=== PATIENT | female | born 1950 ===

== ENCOUNTER → 2016-07-14 | Outpatient (CLI) | payer MEDICARE, OTHER ==
--- NOTE | 2016-07-14 09:38 | MM ---
Reason for exam: history of breast cancer, conservation therapy. Last mammogram was performed 1 year ago. History: Patient is postmenopausal, has history of breast cancer at age 56, and previous chest radiation therapy. Malignant US right core biopsy of the right breast, July 05, 2007. Lumpectomy, 2007. Radiation therapy. Took hormonal contraceptives for 7 years. Took estrogen for 6 years beginning at age 50. Took antineoplastic for 5 years beginning at age 56. Physical Findings: Nurse did not find any significant physical abnormalities on exam. MG 3D Diag Mammo W/Cad CINDY Bilateral CC and MLO view(s) were taken. Prior study comparison: July 14, 2015, bilateral MG 3d diag mammo w/cad CINDY. July 10, 2014, bilateral MG diagnostic mammo w CAD CINDY. July 08, 2013, CAD bilateral diagnostic mammogram. July 06, 2012, CAD bilateral diagnostic mammogram. The breast tissue is heterogeneously dense. This may lower the sensitivity of mammography. Post surgical and post therapy change in the right breast. No significant new findings when compared with previous films. These results were verbally communicated with the patient and result sheet given to the patient on 07/14/16. ASSESSMENT: Benign, BI-RAD 2 RECOMMENDATION: Follow-up diagnostic mammogram of both breasts in 1 year.
== END | disposition home or self-care (01) ==
LOC: RADMAMWWP 08:52
PROVIDERS: ATTEND Surgery
DX: R92.8 Other abnormal and inconclusive findings on diagnostic imaging of breast (principal)
CPT/HCPCS: G0204; G0279

== ENCOUNTER → 2017-01-10 | Outpatient (CLI) | payer MEDICARE, OTHER ==
--- NOTE | 2017-01-10 13:26 | US ---
EXAMINATION TYPE: US thyroid st tissue head/neck DATE OF EXAM: 01/10/2017 COMPARISON: NONE CLINICAL HISTORY: R59.0 Cervical lymphadenopathy. Left submandibular palp, not tender, has not change d in size, h/o breast ca 2008 Normal appearing soft tissue scan with normal appearing lymph node at site of palpable. Largest dimen lauryn of node was 1.2cm and showed internal vascularity. IMPRESSION: Area of palpable abnormality there are subcentimeter oval well-defined lesion felt to re flect prominent lymph node. Normal fatty hilum is not clearly seen. Suspect reactive lymph node from recent infection or inflammatory change. If lesion persists I would consider follow-up contrast-enhan estefany neck CT to further evaluate this and the adjacent tissue due to poor visualization of normal fatt y hilum on images saved.
== END | disposition home or self-care (01) ==
LOC: RADUSWWP 11:55
PROVIDERS: ATTEND Family Medicine
DX: R59.0 Localized enlarged lymph nodes (principal)
CPT/HCPCS: 76536

== ENCOUNTER → 2017-08-07 | Outpatient (CLI) | payer MEDICARE, OTHER ==
--- NOTE | 2017-08-07 08:34 | MM ---
Reason for exam: additional evaluation requested from prior study. Last mammogram was performed 1 year and 1 month ago. History: Patient is postmenopausal, has history of breast cancer at age 56, and previous chest radiation therapy. Malignant US right core biopsy of the right breast, July 05, 2007. Lumpectomy, 2007. Radiation therapy. Took hormonal contraceptives for 7 years. Took estrogen for 6 years beginning at age 50. Took antineoplastic for 5 years beginning at age 56. Physical Findings: Nurse did not find any significant physical abnormalities on exam. MG 3D Diag Mammo W/Cad CINDY Bilateral CC and MLO view(s) were taken. XCCL view(s) were taken of the right breast. Prior study comparison: July 14, 2016, bilateral MG 3d diag mammo w/cad CINDY. July 14, 2015, bilateral MG 3d diag mammo w/cad CINDY. The breast tissue is heterogeneously dense. This may lower the sensitivity of mammography. Post surgical change in the right upper outer quadrant posteriorly. No significant new findings when compared with previous films. These results were verbally communicated with the patient and result sheet given to the patient on 08/07/17. ASSESSMENT: Benign, BI-RAD 2 RECOMMENDATION: Routine screening mammogram of both breasts in 1 year.
== END ==
LOC: RADMAMWWP 07:30
PROVIDERS: ATTEND Family Medicine
DX: R92.8 Other abnormal and inconclusive findings on diagnostic imaging of breast (principal)
CPT/HCPCS: 77066; G0279; 77062

== ENCOUNTER → 2018-03-08 | Outpatient (CLI) | payer MEDICARE ==
--- NOTE | 2018-03-08 12:10 | BD ---
EXAMINATION TYPE: Axial Bone Density DATE OF EXAM: 03/08/2018 CLINICAL HISTORY: Height: 62 Weight: 100 FRAX RISK QUESTIONS: Alcohol (3 or more units per day): no Family History (Parent hip fracture): no Glucocorticoids (More than 3mos): no (Ex: prednisone, prednisolone, methylprednisolone, dexamethasone, and hydrocortisone). History of Fracture in Adulthood: no Secondary Osteoporosis: 1. Type 1 Diabetes: no 2. Hyperthyroidism: no 3. Menopause before 45: no 4. Malnutrition: no 5. Chronic liver disease: no Rheumatoid Arthritis: no Current Tobacco Use: no RISK FACTORS HISTORY OF: Family History of Osteoporosis: not that patient is aware of Active: yes Diet low in dairy products/other sources of calcium: no Postmenopausal woman: yes Take estrogen and/or progesterone medications: not now How long: hormonal contraceptives about 7 years, estrogen about 6 years Lost more than 2 inches in height since high school: no Frequent falls: no Poor Health: no Hyperparathyroidism: no Adrenal Insufficiency: no MEDICATIONS: Prednisone or other steroids: no Thyroid Medications: no Osteoporosis Medications: no Additional Medications: calcium with Vitamin D Additional History: Breast CA age 56:radiation; past use of Antineoplastic for 5 years...none now) EXAM MEASUREMENTS: Bone mineral densitometry was performed using the [employer] System. Bone mineral density as measured about the Lumbar spine is: ----- L1-L4(G/cm2): 1.110 T Score Values are as follows: ----- L2: -0.6 ----- L3: -0.1 ----- L4: -1.2 ----- L1-L4: -0.6 Bone mineral density has: Decreased -0.3% since study of: 12/27/2011 Bone mineral density about the R hip (g/cm2): 0.820 Bone mineral density about the L hip (g/cm2): 0.751 T Score values are as follows: -----R Neck: -1.6 -----L Neck: -2.1 -----R Total: -1.4 -----L Total: -1.8 Bone mineral density has: Decreased -8.1% since study of: IMPRESSION: Osteopenia bilateral femora. NOTE: T-SCORE=SD OF THE YOUNG ADULT MEAN.
== END | disposition home or self-care (01) ==
LOC: RADBDWWP 07:07
PROVIDERS: ATTEND Family Medicine
DX: Z78.0 Asymptomatic menopausal state (principal); M85.852 Other specified disorders of bone density and structure, left thigh; M85.851 Other specified disorders of bone density and structure, right thigh
CPT/HCPCS: 77080

== ENCOUNTER → 2018-08-08 | Outpatient (CLI) | payer MEDICARE ==
--- NOTE | 2018-08-08 08:55 | MM ---
Reason for exam: additional evaluation requested from prior study. Last mammogram was performed 1 year ago. History: Patient is postmenopausal, has history of breast cancer at age 56, and previous chest radiation therapy. Malignant US right core biopsy of the right breast, July 05, 2007. Lumpectomy, 2007. Radiation therapy. Took hormonal contraceptives for 7 years. Took estrogen for 6 years beginning at age 50. Took antineoplastic for 5 years beginning at age 56. Physical Findings: Nurse did not find any significant physical abnormalities on exam. MG 3D Diag Mammo W/Cad CINDY Bilateral CC and MLO view(s) were taken. Prior study comparison: August 07, 2017, bilateral MG 3d diag mammo w/cad CINDY. July 14, 2016, bilateral MG 3d diag mammo w/cad CINDY. The breast tissue is heterogeneously dense. This may lower the sensitivity of mammography. No significant new findings when compared with previous films. These results were verbally communicated with the patient and result sheet given to the patient on 08/08/18. ASSESSMENT: Benign, BI-RAD 2 RECOMMENDATION: Routine screening mammogram of both breasts in 1 year.
== END ==
LOC: RADMAMWWP 08:08
PROVIDERS: ATTEND Family Medicine
DX: C50.919 Malignant neoplasm of unspecified site of unspecified female breast (principal)
CPT/HCPCS: 77066; G0279; 77062

== ENCOUNTER → 2019-09-05 | Outpatient (CLI) | payer MEDICARE ==
--- NOTE | 2019-09-09 10:12 | MM ---
Reason for exam: screening (asymptomatic). Last mammogram was performed 1 year and 1 month ago. History: Patient is postmenopausal, has history of breast cancer at age 56, and previous chest radiation therapy. Malignant US right core biopsy of the right breast, July 05, 2007. Lumpectomy, 2007. Radiation therapy. Took hormonal contraceptives for 7 years. Took estrogen for 6 years beginning at age 50. Took antineoplastic for 5 years beginning at age 56. Physical Findings: A clinical breast exam by your physician is recommended on an annual basis and results should be correlated with mammographic findings. MG 3D Screening Mammo W/Cad Bilateral CC and MLO view(s) were taken. Prior study comparison: August 08, 2018, bilateral MG 3d diag mammo w/cad CINDY. August 07, 2017, bilateral MG 3d diag mammo w/cad CINDY. The breast tissue is heterogeneously dense. This may lower the sensitivity of mammography. Finding #1: Architectural distortion in the axillary tail position of the right breast consistent with known treatment changes. Finding #2: There are typically benign round calcifications in both breasts. There is no discrete abnormality. ASSESSMENT: Benign, BI-RAD 2 RECOMMENDATION: Follow-up diagnostic mammogram of both breasts in 1 year.
== END | disposition home or self-care (01) ==
LOC: RADMAMWWP 07:46
PROVIDERS: ATTEND Family Medicine
DX: Z12.31 Encounter for screening mammogram for malignant neoplasm of breast (principal)
CPT/HCPCS: 77063; 77067

== ENCOUNTER → 2020-04-02 | Outpatient (CLI) | payer MEDICARE ==
--- NOTE | 2020-04-02 09:57 | BD ---
EXAMINATION TYPE: Axial Bone Density DATE OF EXAM: 04/02/2020 COMPARISON: 03.08.2018 CLINICAL HISTORY: 69 YR OLD FEMALE.....ICD-10 CODE: Z78.0 MENOPAUSAL Height: 61.2 Weight: 100 FRAX RISK QUESTIONS: NOTHING TO NOTE HERE RISK FACTORS HISTORY OF: Postmenopausal woman: YES AT ABOUT 51 YRS OLD Take estrogen and/or progesterone medications: YES, IN THE PAST FOR ABOUT 4-5 YRS Hyperparathyroidism: NO Adrenal Insufficiency: NO MEDICATIONS: Additional Medications: HX OF RADIATION, XANAX, REFLUX MEDS, VIT C Additional History: HX OF RT BREAST CA, REFLUX, ANXIETY AT NIGHT EXAM MEASUREMENTS: Bone mineral densitometry was performed using the [employer] System. Bone mineral density as measured about the Lumbar spine is: ----- L1-L4(G/cm2): 1.054 T Score Values are as follows: ----- L1: -0.4 ----- L2: -0.9 ----- L3: -0.6 ----- L4: -2.2 ----- L1-L4: -1.1 Bone mineral density has: Decreased -7.8% since study of: 03.08.2018 Bone mineral density about the R hip (g/cm2): 0.793 Bone mineral density about the L hip (g/cm2): 0.761 T Score values are as follows: -----R Neck: -1.7 -----L Neck: -2.0 -----R Total: -1.7 -----L Total: -2.0 Bone mineral density has: Decreased -3.0% since study of: 03.08.2018 FRAX%s: THERE IS A 10.0% CHANCE FOR A MAJOR OSTEOPOROTIC FX AND A 2.2% FOR HIP......PROBABILITY F OR FX IN 10 YRS TIME IMPRESSION: Osteopenia (T Score between -2.5 and -1) remains present. Bone density is slightly decreased or dimin ished from 2018. There remains slightly increased risk of fracture and the patient may be considered for treatment. Re-Screen 2-5 years. NOTE: T-SCORE=SD OF THE YOUNG ADULT MEAN.
== END | disposition home or self-care (01) ==
LOC: RADBDWWP 08:36
PROVIDERS: ATTEND Family Medicine
DX: M85.88 Other specified disorders of bone density and structure, other site (principal)
CPT/HCPCS: 77080

== ENCOUNTER 2020-05-17 14:48 | Inpatient (IN) | payer MEDICARE ==
[2020-05-17] MEDS ORDERED: SODIUM CHLORIDE 0.9% 500 ML 500 ML IV STA (15:47)
[2020-05-17 16:18] LABS: Basophils % (A) 0 %; Eosinophils # (A) 0.1 k/uL (0-0.7); Eosinophils % (A) 1 %; HCT 31.7 % (34.0-46.0); Lymphocytes % (A) 9 %; MCH 30.8 pg (25.0-35.0); MCHC 34.6 g/dL (31.0-37.0); Mean Platelet Volume 7.1; Monocytes # (A) 0.5 k/uL (0-1.0); Monocytes % (A) 5 %; Neutrophils # (A) 8.6 k/uL (1.3-7.7); Neutrophils % (A) 83 %; Platelet Count 386 k/uL (150-450); RBC 3.57 m/uL (3.80-5.40); RDW 12.5 % (11.5-15.5); WBC 10.4 k/uL (3.8-10.6)
--- NOTE | 2020-05-17 16:25 | XR ---
EXAMINATION TYPE: XR chest 2V DATE OF EXAM: 05/17/2020 COMPARISON: NONE HISTORY: Nausea. Syncope. TECHNIQUE: 3 views FINDINGS: Heart is normal. There are no hilar masses. There are surgical clips over the right breast. There is mild atheromatous change in the thoracic aorta. There is some minimal lingula density at th e left cardiac border. IMPRESSION: Normal heart. Small lingula infiltrate or atelectasis. No heart failure.
[2020-05-17 16:26] LABS: ALT 7 U/L (4-34); AST 30 U/L (14-36); African American GFR (CKD) >90 (>60 ml/min/1.73 sqM); Albumin 3.6 g/dL (3.5-5.0); Alkaline Phosphatase 67 U/L (38-126); Anion Gap 7 mmol/L; Blood Urea Nitrogen 37 mg/dL (7-17); Calcium 8.9 mg/dL (8.4-10.2); Carbon Dioxide 28 mmol/L (22-30); Chloride 103 mmol/L (98-107); Glucose 94 mg/dL (74-99); Magnesium 2.3 mg/dL (1.6-2.3); Non-African American GFR(CKD) >90 (>60 ml/min/1.73 sqM); Potassium 4.8 mmol/L (3.5-5.1); Sodium 138 mmol/L (137-145); Total Bilirubin 0.3 mg/dL (0.2-1.3); Total Protein 6.1 g/dL (6.3-8.2)
[2020-05-17 16:29] LABS: Appearance,Urine Clear (Clear); Bilirubin,Urine Negative (Negative); Blood,Urine Negative (Negative); Color,Urine Light Yellow; Glucose,Urine (UA) Negative (Negative); Ketones,Urine 1+ (Negative); Leukocyte Esterase,Urine Negative (Negative); Nitrite,Urine Negative (Negative); Protein,Urine Trace (Negative); Specific Gravity,Urine 1.026 (1.001-1.035); Urobilinogen,Urine <2.0 mg/dL (<2.0)
[2020-05-17 16:33] LABS: INR 0.9 (<1.2); Prothrombin Time 10.2 sec (9.0-12.0)
[2020-05-17 16:50] LABS: Partial Thromboplastin Time 20.8 sec (22.0-30.0)
[2020-05-17] MEDS ORDERED: PANTOPRAZOLE 40 MG/10 ML VIAL IVP ONE (17:07)
[2020-05-17] MEDS ORDERED: NALOXONE 0.4 MG/ML 1 ML VIAL IV PRN (17:08)
--- NOTE | 2020-05-17 17:08 | ED ---
General Adult HPI - General Chief complaint: Syncope Stated complaint: GI Bleed Time Seen by Provider: 05/17/20 15:36 Source: patient, EMS Mode of arrival: EMS Limitations: no limitations - History of Present Illness Initial comments: She is a 77-year-old female with past medical history of peptic ulcer disease, breast cancer in remission who presents emergency Department with reported syncopal episode. Patient states that she was at home in the bathroom when she had sudden onset of nausea. She sat on the ground as she felt faint and called to her . Reports that she then completely passed out on the floor. Unknown how long the patient was out for. She denies having any headaches or visual changes prior to the incident. No chest pain or shortness of breath. Patient reports that she must of only been out for a few seconds. When she awoke she vomited a small amount of dark blood clots. States that she does have a history of peptic ulcer disease however has not had any issues with it since the . She had a colonoscopy and EGD on the of this month by Dr. Warner and it was reported that the ulcer had healed over. Patient denies hemoptysis. No cough or shortness of breath. Denies any previous cardiac history. No other alleviating precipitating or modifying factors - Related Data Home Medications Medication Instructions Recorded Confirmed ALPRAZolam [Xanax] 0.25 mg PO HS 05/17/20 05/17/20 Carboxymethylcellulose Sodium 1 drop BOTH EYES HS 05/17/20 05/17/20 [Refresh Tears] Patti-C 500mg 500 mg PO PC-SUPPER 05/17/20 05/17/20 Lactobacillus Rhamnosus GG 1 cap PO DAILY 05/17/20 05/17/20 [Culturelle] Pantoprazole Sodium [Protonix] 40 mg PO Q48H 05/17/20 05/17/20 Allergies Allergy/AdvReac Type Severity Reaction Status Date / Time azithromycin AdvReac Nausea & Verified 05/17/20 17:12 Vomiting & Diarrhea ciprofloxacin [From Cipro] AdvReac Nausea & Verified 05/17/20 17:12 Vomiting & Diarrhea Review of Systems ROS Statement: Those systems with pertinent positive or pertinent negative responses have been documented in the HPI. ROS Other: All systems not noted in ROS Statement are negative. Past Medical History Past Medical History: Cancer Additional Past Medical History / Comment(s): breast History of Any Multi-Drug Resistant Organisms: None Reported Past Surgical History: Tubal Ligation Additional Past Surgical History / Comment(s): rt lumpectomy, cataracts Past Psychological History: No Psychological Hx Reported Smoking Status: Never smoker Past Alcohol Use History: None Reported Past Drug Use History: None Reported General Exam Limitations: no limitations General appearance: alert, in no apparent distress Head exam: Present: atraumatic, normocephalic, normal inspection Eye exam: Present: normal appearance, PERRL, EOMI. Absent: scleral icterus, conjunctival injection, periorbital swelling ENT exam: Present: normal exam, mucous membranes moist Neck exam: Present: normal inspection. Absent: tenderness, meningismus, lymphadenopathy Respiratory exam: Present: normal lung sounds bilaterally. Absent: respiratory distress, wheezes, rales, rhonchi, stridor Cardiovascular Exam: Present: regular rate, normal rhythm, normal heart sounds. Absent: systolic murmur, diastolic murmur, rubs, gallop, clicks GI/Abdominal exam: Present: soft, normal bowel sounds. Absent: distended, tenderness, guarding, rebound, rigid Extremities exam: Present: normal inspection, full ROM, normal capillary refill. Absent: tenderness, pedal edema, joint swelling, calf tenderness Back exam: Present: normal inspection Neurological exam: Present: alert, oriented X3, CN II-XII intact Psychiatric exam: Present: normal affect, normal mood Skin exam: Present: warm, dry, intact, normal color. Absent: rash Course Vital Signs 05/17/20 05/17/20 05/17/20 14:53 16:00 17:00 Temperature 98.2 F Pulse Rate 91 81 91 Respiratory 20 20 20 Rate Blood Pressure 126/55 127/62 124/85 O2 Sat by Pulse 99 100 98 Oximetry 05/17/20 17:56 Temperature 98.1 F Pulse Rate 93 Respiratory 20 Rate Blood Pressure 120/63 O2 Sat by Pulse 99 Oximetry EKG Findings - EKG Comments: EKG Findings:: EKG demonstrates normal sinus rhythm with ventricular rate of 86. SC interval 112. QRS 68. QTC of 418. No acute ST segment elevations or depressions. Medical Decision Making - Medical Decision Making Upon arrival patient was placed into room 6. A thorough history and physical exam was performed. IV had been established by EMS. Laboratory studies were conducted and a chest x-ray was performed. 12-lead EKG was performed. Laboratory studies are reviewed. Hemoglobin is 11. Chest x-ray demonstrates a normal heart with a small lingular atelectasis. Results are discussed with the patient. She has not had any episodes of hematemesis while in the emergency department. I discussed the case with Dr. Crowe who agreed to admit the [facility]. She remained in stable condition awaiting a bed. I will consult GI and cardiology - Lab Data Result diagrams: 05/19/20 05:16 05/19/20 05:16 Lab Results 05/17/20 05/17/20 05/17/20 Range/Units 16:07 16:07 16:07 WBC 10.4 (3.8-10.6) k/uL RBC 3.57 L (3.80-5.40) m/uL Hgb 11.0 L (11.4-16.0) gm/dL Hct 31.7 L (34.0-46.0) % MCV 89.0 (80.0-100.0) fL MCH 30.8 (25.0-35.0) pg MCHC 34.6 (31.0-37.0) g/dL RDW 12.5 (11.5-15.5) % Plt Count 386 (150-450) k/uL MPV 7.1 Immature Gran % (Auto) % Absolute Nucleated RBC (0.00-0.00) X 10*3/uL Neutrophils % 83 % Lymphocytes % 9 % Monocytes % 5 % Eosinophils % 1 % Basophils % 0 % Immature Gran # (0.00-0.04) X 10*3/uL Neutrophils # 8.6 H (1.3-7.7) k/uL Lymphocytes # 1.0 (1.0-4.8) k/uL Monocytes # 0.5 (0-1.0) k/uL Eosinophils # 0.1 (0-0.7) k/uL Basophils # 0.0 (0-0.2) k/uL NRBC/100 WBC Diff (0.0-0.0) /100 WBCS PT 10.2 (9.0-12.0) sec INR 0.9 (<1.2) APTT 20.8 L (22.0-30.0) sec Sodium 138 (137-145) mmol/L Potassium 4.8 (3.5-5.1) mmol/L Chloride 103 (98-107) mmol/L Carbon Dioxide 28 (22-30) mmol/L Anion Gap 7 mmol/L BUN 37 H (7-17) mg/dL Creatinine 0.59 (0.52-1.04) mg/dL Est GFR (CKD-EPI)AfAm >90 (>60 ml/min/1.73 sqM) Est GFR (CKD-EPI)NonAf >90 (>60 ml/min/1.73 sqM) BUN/Creatinine Ratio (12.00-20.00) Ratio Glucose 94 (74-99) mg/dL Calcium 8.9 (8.4-10.2) mg/dL Magnesium 2.3 (1.6-2.3) mg/dL Total Bilirubin 0.3 (0.2-1.3) mg/dL AST 30 (14-36) U/L ALT 7 (4-34) U/L Alkaline Phosphatase 67 (38-126) U/L Troponin I (0.000-0.034) ng/mL Total Protein 6.1 L (6.3-8.2) g/dL Albumin 3.6 (3.5-5.0) g/dL Urine Color Urine Appearance (Clear) Urine pH (5.0-8.0) Ur Specific [place] (1.001-1.035) Urine Protein (Negative) Urine Glucose (UA) (Negative) Urine Ketones (Negative) Urine Blood (Negative) Urine Nitrite (Negative) Urine Bilirubin (Negative) Urine Urobilinogen (<2.0) mg/dL Ur Leukocyte Esterase (Negative) Coronavirus (PCR) (Not Detectd) 05/17/20 05/17/20 05/17/20 Range/Units 16:07 16:25 17:27 WBC (3.8-10.6) k/uL RBC (3.80-5.40) m/uL Hgb (11.4-16.0) gm/dL Hct (34.0-46.0) % MCV (80.0-100.0) fL MCH (25.0-35.0) pg MCHC (31.0-37.0) g/dL RDW (11.5-15.5) % Plt Count (150-450) k/uL MPV Immature Gran % (Auto) % Absolute Nucleated RBC (0.00-0.00) X 10*3/uL Neutrophils % % Lymphocytes % % Monocytes % % Eosinophils % % Basophils % % Immature Gran # (0.00-0.04) X 10*3/uL Neutrophils # (1.3-7.7) k/uL Lymphocytes # (1.0-4.8) k/uL Monocytes # (0-1.0) k/uL Eosinophils # (0-0.7) k/uL Basophils # (0-0.2) k/uL NRBC/100 WBC Diff (0.0-0.0) /100 WBCS PT (9.0-12.0) sec INR (<1.2) APTT (22.0-30.0) sec Sodium (137-145) mmol/L Potassium (3.5-5.1) mmol/L Chloride (98-107) mmol/L Carbon Dioxide (22-30) mmol/L Anion Gap mmol/L BUN (7-17) mg/dL Creatinine (0.52-1.04) mg/dL Est GFR (CKD-EPI)AfAm (>60 ml/min/1.73 sqM) Est GFR (CKD-EPI)NonAf (>60 ml/min/1.73 sqM) BUN/Creatinine Ratio (12.00-20.00) Ratio Glucose (74-99) mg/dL Calcium (8.4-10.2) mg/dL Magnesium (1.6-2.3) mg/dL Total Bilirubin (0.2-1.3) mg/dL AST (14-36) U/L ALT (4-34) U/L Alkaline Phosphatase (38-126) U/L Troponin I <0.012 (0.000-0.034) ng/mL Total Protein (6.3-8.2) g/dL Albumin (3.5-5.0) g/dL Urine Color Light Yellow Urine Appearance Clear (Clear) Urine pH 6.0 (5.0-8.0) Ur Specific [place] 1.026 (1.001-1.035) Urine Protein Trace H (Negative) Urine Glucose (UA) Negative (Negative) Urine Ketones 1+ H (Negative) Urine Blood Negative (Negative) Urine Nitrite Negative (Negative) Urine Bilirubin Negative (Negative) Urine Urobilinogen <2.0 (<2.0) mg/dL Ur Leukocyte Esterase Negative (Negative) Coronavirus (PCR) Not Detected (Not Detectd) 05/17/20 05/17/20 05/18/20 Range/Units 18:38 22:13 05:33 WBC 8.42 (3.8-10.6) k/uL RBC 2.86 L (3.80-5.40) m/uL Hgb 8.4 L (11.4-16.0) gm/dL Hct 26.2 L (34.0-46.0) % MCV 91.6 (80.0-100.0) fL MCH 29.4 (25.0-35.0) pg MCHC 32.1 (31.0-37.0) g/dL RDW 12.5 (11.5-15.5) % Plt Count 347 (150-450) k/uL MPV 10.4 Immature Gran % (Auto) 0.4 % Absolute Nucleated RBC 0 (0.00-0.00) X 10*3/uL Neutrophils % 60.0 % Lymphocytes % 27.0 % Monocytes % 10.3 % Eosinophils % 1.8 % Basophils % 0.5 % Immature Gran # 0.03 (0.00-0.04) X 10*3/uL Neutrophils # 5.06 (1.3-7.7) k/uL Lymphocytes # 2.27 (1.0-4.8) k/uL Monocytes # 0.87 (0-1.0) k/uL Eosinophils # 0.15 (0-0.7) k/uL Basophils # 0.04 (0-0.2) k/uL NRBC/100 WBC Diff 0 (0.0-0.0) /100 WBCS PT (9.0-12.0) sec INR (<1.2) APTT (22.0-30.0) sec Sodium (137-145) mmol/L Potassium (3.5-5.1) mmol/L Chloride (98-107) mmol/L Carbon Dioxide (22-30) mmol/L Anion Gap mmol/L BUN (7-17) mg/dL Creatinine (0.52-1.04) mg/dL Est GFR (CKD-EPI)AfAm (>60 ml/min/1.73 sqM) Est GFR (CKD-EPI)NonAf (>60 ml/min/1.73 sqM) BUN/Creatinine Ratio (12.00-20.00) Ratio Glucose (74-99) mg/dL Calcium (8.4-10.2) mg/dL Magnesium (1.6-2.3) mg/dL Total Bilirubin (0.2-1.3) mg/dL AST (14-36) U/L ALT (4-34) U/L Alkaline Phosphatase (38-126) U/L Troponin I <0.012 <0.012 (0.000-0.034) ng/mL Total Protein (6.3-8.2) g/dL Albumin (3.5-5.0) g/dL Urine Color Urine Appearance (Clear) Urine pH (5.0-8.0) Ur Specific [place] (1.001-1.035) Urine Protein (Negative) Urine Glucose (UA) (Negative) Urine Ketones (Negative) Urine Blood (Negative) Urine Nitrite (Negative) Urine Bilirubin (Negative) Urine Urobilinogen (<2.0) mg/dL Ur Leukocyte Esterase (Negative) Coronavirus (PCR) (Not Detectd) 05/18/20 Range/Units 05:33 WBC (3.8-10.6) k/uL RBC (3.80-5.40) m/uL Hgb (11.4-16.0) gm/dL Hct (34.0-46.0) % MCV (80.0-100.0) fL MCH (25.0-35.0) pg MCHC (31.0-37.0) g/dL RDW (11.5-15.5) % Plt Count (150-450) k/uL MPV Immature Gran % (Auto) % Absolute Nucleated RBC (0.00-0.00) X 10*3/uL Neutrophils % % Lymphocytes % % Monocytes % % Eosinophils % % Basophils % % Immature Gran # (0.00-0.04) X 10*3/uL Neutrophils # (1.3-7.7) k/uL Lymphocytes # (1.0-4.8) k/uL Monocytes # (0-1.0) k/uL Eosinophils # (0-0.7) k/uL Basophils # (0-0.2) k/uL NRBC/100 WBC Diff (0.0-0.0) /100 WBCS PT (9.0-12.0) sec INR (<1.2) APTT (22.0-30.0) sec Sodium 142 (137-145) mmol/L Potassium 4.8 (3.5-5.1) mmol/L Chloride 111 H (98-107) mmol/L Carbon Dioxide 27.3 (22-30) mmol/L Anion Gap 3.70 L mmol/L BUN 29.0 H (7-17) mg/dL Creatinine 0.6 (0.52-1.04) mg/dL Est GFR (CKD-EPI)AfAm 107.0 (>60 ml/min/1.73 sqM) Est GFR (CKD-EPI)NonAf 92.4 (>60 ml/min/1.73 sqM) BUN/Creatinine Ratio 48.33 H (12.00-20.00) Ratio Glucose 83 (74-99) mg/dL Calcium 8.6 L (8.4-10.2) mg/dL Magnesium (1.6-2.3) mg/dL Total Bilirubin (0.2-1.3) mg/dL AST (14-36) U/L ALT (4-34) U/L Alkaline Phosphatase (38-126) U/L Troponin I (0.000-0.034) ng/mL Total Protein (6.3-8.2) g/dL Albumin (3.5-5.0) g/dL Urine Color Urine Appearance (Clear) Urine pH (5.0-8.0) Ur Specific [place] (1.001-1.035) Urine Protein (Negative) Urine Glucose (UA) (Negative) Urine Ketones (Negative) Urine Blood (Negative) Urine Nitrite (Negative) Urine Bilirubin (Negative) Urine Urobilinogen (<2.0) mg/dL Ur Leukocyte Esterase (Negative) Coronavirus (PCR) (Not Detectd) Disposition Clinical Impression: Syncope and collapse, Hematemesis Disposition: ADMITTED IP TO THIS [facility] Condition: Stable Is patient prescribed a controlled substance at d/c from ED?: No Decision to Admit Reason: Admit from EC Decision Date: 05/17/20 Decision Time: 17:08
[2020-05-17] MEDS: ARTIFICIAL TEARS-HYPROMELLOSE DROPS 15 ML BTL BOTH EYES SCH (19:36)
[2020-05-17] MEDS: SODIUM CHLORIDE 0.9% 1,000 ML IV SCH (19:37)
[2020-05-17] MEDS: ALPRAZolam 0.25 MG TAB PO SCH (19:37)
--- NOTE | 2020-05-17 22:48 | HP ---
HISTORY AND PHYSICAL CHIEF COMPLAINTS: Syncope and gastrointestinal bleed. HISTORY OF PRESENT ILLNESS: This 69-year-old woman with a past medical history of multiple medical problems including history of breast cancer, history of tubal ligation, lumpectomy, cataracts being followed Dr. Ledezma in the outpatient setting, was complaining of syncopal episode. The patient was in the bathroom, the patient had nausea and the patient also had episodes of hematemesis and the patient came to [facility] and was admitted for further evaluation and treatment. The patient recently had a colonoscopy and EGD by Dr. Sims. Apparently, pyloric stenosis suspected. The patient had history of pyloric ulcers apparently in 1998, which was treated medically. There is no history of fever, rigors. No history of headache, loss of consciousness, seizures. PAST MEDICAL HISTORY: History of breast cancer, history of tubal ligation. MEDICATIONS: Medications prior to admission include home medications are: Protonix, lactobacillus, vitamin C, Refresh tears, and Xanax. Doses are reviewed. ALLERGIES: ZITHROMAX. CIPRO. FAMILY HISTORY: No history of heart disease or strokes in the family. SOCIAL HISTORY: No history of smoking. No history of alcohol. REVIEW OF SYSTEMS: ENT: No diminished vision. No diminished hearing. CARDIOVASCULAR: No angina or palpitations. RESPIRATION: No cough or hemoptysis. GI mentioned earlier. : No dysuria or hematuria. NERVOUS SYSTEM: No numbness, weakness. ALLERGY/IMMUNOLOGY: No asthma or hayfever. MUSCULOSKELETAL: As mentioned earlier. HEMATOLOGY/ONCOLOGY: As mentioned earlier. ENDOCRINE: No history of diabetes or hypothyroidism. CONSTITUTIONAL: As mentioned earlier. DERMATOLOGY: Negative. RHEUMATOLOGY negative. PSYCHIATRY as mentioned earlier. PHYSICAL EXAMINATION: Alert and oriented times three. Pulse 98, blood pressure 111/72. Respirations 18, temperature 98.3, pulse ox 98% on room air. HEENT: Conjunctivae pale. Oral mucosa moist. NECK: No jugular venous distention. No lymph node enlargement. CARDIOVASCULAR systems: S1, S2 muffled. RESPIRATION: Breath sounds diminished in the bases. No rhonchi. No crackles. ABDOMEN: Soft, nontender. No mass palpable. LEGS: No edema. No swelling. NERVOUS SYSTEM as mentioned earlier. Moves all 4 limbs. No focal motor or sensory deficits. LYMPHATICS: No lymph nodes palpable in the neck, axillae or groin. SKIN: No ulcer, rash or bleeding. JOINTS: No active deforming arthropathy. LABS: WBC 10.5, hemoglobin 11 and BUN is 37. ASSESSMENT: 1. Acute upper gastrointestinal bleeding with acute blood loss anemia. 2. Increased BUN. 3. History of peptic ulcer disease previously. 4. History of pyloric stenosis, possibly. 5. History of carcinoma of the breast. 6. History of tubal ligation. 7. Mild protein calorie malnutrition with body mass index of 19.6. 8. FULL CODE. RECOMMENDATIONS AND DISCUSSION: This 69-year-old woman who presented with multiple complex medical issues, we will monitor the patient closely, continue the current medications. We will initiate IV Protonix. Keep the patient n.p.o. except medications, possibly repeat endoscopies. Otherwise monitor hemoglobin closely. Avoid antiplatelet agents and anti inflammatory agents. Prognosis is extremely guarded because of multiple complex medical issues. Further recommendations to follow. A copy of dictation being forwarded to Dr. Ledezma who is the primary physician. MMKAYL / LESLIEN: [id number] /
[2020-05-18] MEDS: PANTOPRAZOLE 40 MG/10 ML VIAL IVP SCH ×2 (08:23→21:28)
[2020-05-18] MEDS: SODIUM CHLORIDE 0.9% 1,000 ML IV SCH (08:24)
[2020-05-18] MEDS ORDERED: PANTOPRAZOLE 40 MG/10 ML VIAL IV SCH (09:00)
[2020-05-18 09:14] LABS: Basophils # (A) 0.04 X 10*3/uL (0.00-0.10); Basophils % (A) 0.5 %; Eosinophils # (A) 0.15 X 10*3/uL (0.04-0.35); Eosinophils % (A) 1.8 %; HCT 26.2 % (37.2-46.3); HGB 8.4 g/dL (12.0-15.0); Lymphocytes # (A) 2.27 X 10*3/uL (0.90-5.00); MCH 29.4 pg (27.0-32.0); MCHC 32.1 g/dL (32.0-37.0); MCV 91.6 fL (80.0-97.0); Mean Platelet Volume 10.4 fL (9.5-12.2); Monocytes # (A) 0.87 X 10*3/uL (0.20-1.00); Monocytes % (A) 10.3 %; Neutrophils # (A) 5.06 X 10*3/uL (1.80-7.70); Platelet Count 347 X 10*3/uL (140-440); RBC 2.86 X 10*6/uL (4.10-5.20); RDW 12.5 % (11.5-14.5); WBC 8.42 X 10*3/uL (4.50-10.00)
[2020-05-18 09:26] LABS: Anion Gap 3.7 mmol/L (4.00-12.00); BUN/Creat Ratio 48.33 Ratio (12.00-20.00); Calcium 8.6 mg/dL (8.7-10.3); Carbon Dioxide 27.3 mmol/L (21.6-31.8); Non-African American GFR(CKD) 92.4 (60.0-200.0); Potassium 4.8 mmol/L (3.5-5.5)
[2020-05-18] MEDS ORDERED: ACETAMINOPHEN TAB 325 MG TAB PO PRN (10:27)
--- NOTE | 2020-05-18 12:37 | ECHOF ---
Referral Reason:LV function, syncope MEASUREMENTS -------- HEIGHT: 157.5 cm WEIGHT: 47.6 kg BP: RVIDd: 2.9 cm (< 3.3) IVSd: 1.1 cm (0.6 - 1.1) LVIDd: 2.9 cm (3.9 - 5.3) LVPWd: 1.2 cm (0.6 - 1.1) IVSs: 1.2 cm LVIDs: 1.6 cm LVPWs: 1.3 cm LAESV Index (A-L): 10.69 ml/m Ao Diam: 3.0 cm (2.0 - 3.7) AV Cusp: 1.5 cm (1.5 - 2.6) MV EXCURSION: 17.658 mm (> 18.000) MV EF SLOPE: 46 mm/s (70 - 150) EPSS: 0.4 cm MV E Christian: 0.86 m/s MV DecT: 190 ms MV A Christian: 1.01 m/s MV E/A Ratio: 0.85 RAP: 5.00 mmHg RVSP: 15.74 mmHg FINDINGS -------- Sinus rhythm. This was a technically adequate study. The left ventricular size is normal. Left ventricular wall thickness is normal. Overall left vent ricular systolic function is normal with, an EF between 55 - 60 %. The right ventricle is normal in size. Normal LA size by volume 22+/-6 ml/m2. The right atrial size is normal. Interatrial and interventricular septum intact. The aortic valve is trileaflet and appears structurally normal. There is no evidence of aortic regu rgitation. There is no evidence of aortic stenosis. There is trace mitral regurgitation. Mild tricuspid regurgitation present. There is no evidence of pulmonary hypertension. The right v entricular systolic pressure, as measured by Doppler, is 15.74mmHg. There is no pulmonic regurgitation present. The aortic root size is normal. Normal inferior vena cava with normal inspiratory collapse consistent with estimated right atrial pre ssure of 5 mmHg. There is no pericardial effusion. CONCLUSIONS -------- 1. The left ventricular size is normal. 2. Left ventricular wall thickness is normal. 3. Overall left ventricular systolic function is normal with, an EF between 55 - 60 %. 4. There is trace mitral regurgitation. 5. Mild tricuspid regurgitation present. TIE PRESSER: Samantha Lawrence RDCS
--- NOTE | 2020-05-18 13:20 | US ---
EXAMINATION TYPE: US carotid duplex BILAT DATE OF EXAM: 05/18/2020 COMPARISON: NONE CLINICAL HISTORY: syncope. Exam done portable. EXAM MEASUREMENTS: RIGHT: Peak Systolic Velocity (PSV) cm/sec ----- Right CCA: 124.0 ----- Right ICA: 135.0 ----- Right ECA: 119.0 ICA/CCA ratio: 1.1 RIGHT: End Diastole cm/sec ----- Right CCA: 33.8 ----- Right ICA: 45.4 ----- Right ECA: 10.2 LEFT: Peak Systolic Velocity (PSV) cm/sec ----- Left CCA: 109.0 ----- Left ICA: 117.0 ----- Left ECA: 125.0 ICA/CCA ratio: 1.1 LEFT: End Diastole cm/sec ----- Left CCA: 33.0 ----- Left ICA: 37.6 ----- Left ECA: 18.3 VERTEBRALS (direction of flow): Right Vertebral: Antegrade Left Vertebral: Antegrade Rhythm: Normal More focal moderate to severe hyperechoic plaque left carotid bulb. Increased peak systolic velocity bilateral common carotid arteries. No significant elevated ratio is 1 accounting for this. IMPRESSION: Moderate to severe plaque left carotid bulb. No convincing evidence for hemodynamic sign ificant stenosis. Suspect underlying uncontrolled hypertension, correlate clinically. Criteria for Assigning % of Stenosis / Diameter reduction (Estimation based on the indirect measurements of the internal carotid artery velocities (ICA PSV). 1. Normal (no stenosis)=ICA PSV < 125 cm/s: ratio < 2.0: ICA EDV<40 cm/s. 2. Less than 50% stenosis=ICA PSV < 125 cm/s: ratio < 2.0: ICA EDV<40 cm/s. 3. 50 to 69% stenosis=ICA PSV of 125 to 230 cm/s: ration 2.0 ? 4.0: ICA EDV 40-100 cm/s. 4. Greater than 70% stenosis to near occlusion= ICA PSV > 230 cm/s: ratio > 4.0: ICA EDV > 100 cm/s. 5. Near occlusion= ICA PSV velocities may be low or undetectable: variable ratio and ICA EDV. 6. Total occlusion=unable to detect flow.
--- NOTE | 2020-05-18 14:10 | P.CRDCN ---
History of Present Illness Consult date: 05/18/20 History of present illness: CHIEF COMPLAINT: Syncope HISTORY OF PRESENT ILLNESS: This is a 69-year-old female with a past medical history significant for breast cancer and previous ulcers. Patient does not follow with a line ordering clinician. We have been asked to see the patient in consultation for syncope. Patient examined this morning the bedside. Patient states that yesterday she began feeling nauseous and felt like she was going to pass out. She states that she lowered herself to the floor and then she did pass out. She states that she was only out for a few seconds. When she woke up she threw up a large amount of old blood clots. She reports having an EGD and colonoscopy approximately 10 days ago which she states was "okay". Patient denies any dizziness or lightheadedness. She denies chest pain or pressure. D enies shortness of breath. DIAGNOSTICS: EKG reveals sinus mechanism with no signs of acute ischemia Chest xray negative for acute process Laboratory data: Hemoglobin on admission 11.0. Repeat 8.4. Platelet count 347. Sodium 142. Potassium 4.8. BUN 29. Creatinine 0.6. Troponin negative 3. Current home cardiac medications include none REVIEW OF SYSTEMS: At the time of my exam: CONSTITUTIONAL: Denies fever or chills. HEENT: Denies blurred vision, vision changes, or eye pain. Denies hemoptysis CARDIOVASCULAR: Denies chest pain, orthopnea, PND or palpitations RESPIRATORY: No shortness of breath. GASTROINTESTINAL: Denies abdominal pain. Denies nausea or vomiting. HEMATOLOGIC: Denies bleeding disorders. GENITOURINARY: Denies any blood in urine. SKIN: Denies pruitis. Denies rash. PHYSICAL EXAM: VITAL SIGNS: Reviewed. GENERAL: Well-developed in no acute distress. HEENT: Head is normocephalic. Pupils are equal, round. Sclerae anicteric. Mucous membranes of the mouth are moist. Neck supple. No JVD or thyromegaly. LUNGS: Respirations even and unlabored. Lungs essentially clear to auscultation bilaterally. HEART: Regular rate and rhythm. S1 and S2 heard. ABDOMEN: Soft. Nondistended. Nontender. EXTREMITIES: Normal range of motion. No clubbing or cyanosis. Peripheral pulses intact. No lower extremity edema NEUROLOGIC: Awake and alert. Oriented x 3. ASSESSMENT: Hematemesis Acute blood loss anemia Syncope History of breast cancer PLAN: Obtain 2D echo to assess cardiac structure and function Obtain carotid Doppler Continue telemetry monitoring Monitor hemoglobin GI on consult. Await evaluation Further recommendations pending course Nurse practitioner note has been reviewed by physician. Signing provider agrees with the documented findings, assessment, and plan of care. Past Medical History Past Medical History: Cancer Additional Past Medical History / Comment(s): breast History of Any Multi-Drug Resistant Organisms: None Reported Past Surgical History: Tubal Ligation Additional Past Surgical History / Comment(s): rt lumpectomy, cataracts Past Psychological History: No Psychological Hx Reported Smoking Status: Never smoker Past Alcohol Use History: None Reported Past Drug Use History: None Reported Medications and Allergies Home Medications Medication Instructions Recorded Confirmed Type ALPRAZolam [Xanax] 0.25 mg PO HS 05/17/20 05/17/20 History Carboxymethylcellulose Sodium 1 drop BOTH EYES HS 05/17/20 05/17/20 History [Refresh Tears] Patti-C 500mg 500 mg PO PC-SUPPER 05/17/20 05/17/20 History Lactobacillus Rhamnosus GG 1 cap PO DAILY 05/17/20 05/17/20 History [Culturelle] Pantoprazole Sodium [Protonix] 40 mg PO Q48H 05/17/20 05/17/20 History Allergies Allergy/AdvReac Type Severity Reaction Status Date / Time azithromycin AdvReac Nausea & Verified 05/17/20 17:12 Vomiting & Diarrhea ciprofloxacin [From Cipro] AdvReac Nausea & Verified 05/17/20 17:12 Vomiting & Diarrhea Physical Exam Vitals: Vital Signs Temp Pulse Pulse Resp BP BP BP 05/18/20 06:55 98.3 F 84 16 109/62 05/18/20 01:40 98.3 F 63 17 118/67 05/18/20 00:43 18 05/17/20 20:00 98.3 F 98 18 111/72 05/17/20 18:29 98.8 F 96 16 129/60 05/17/20 17:56 98.1 F 93 20 120/63 05/17/20 17:00 91 20 124/85 05/17/20 16:00 81 20 127/62 05/17/20 14:53 98.2 F 91 20 126/55 Pulse Ox 05/18/20 06:55 98 05/18/20 01:40 97 05/18/20 00:43 05/17/20 20:00 99 05/17/20 18:29 97 05/17/20 17:56 99 05/17/20 17:00 98 05/17/20 16:00 100 05/17/20 14:53 99 Intake and Output 05/17/20 05/18/20 05/18/20 22:59 06:59 14:59 Intake Total 600 600 Balance 600 600 Intake: Intake, IV Titration 600 600 Amount Sodium Chloride 0.9% 1, 600 600 000 ml @ 75 mls/hr IV . [id number] [facility] Rx#:[id number] Other: Voiding Method Toilet Toilet Toilet # Voids 1 2 Weight 47.627 kg Results 05/18/20 05:33 05/18/20 05:33 Cardiac Enzymes 05/17/20 05/17/20 05/17/20 Range/Units 16:07 16:07 18:38 AST 30 (14-36) U/L Troponin I <0.012 <0.012 (0.000-0.034) ng/mL 05/17/20 Range/Units 22:13 AST (14-36) U/L Troponin I <0.012 (0.000-0.034) ng/mL Coagulation 05/17/20 Range/Units 16:07 PT 10.2 (9.0-12.0) sec APTT 20.8 L (22.0-30.0) sec CBC 05/17/20 05/18/20 Range/Units 16:07 05:33 WBC 10.4 8.42 (3.8-10.6) k/uL RBC 3.57 L 2.86 L (3.80-5.40) m/uL Hgb 11.0 L 8.4 L (11.4-16.0) gm/dL Hct 31.7 L 26.2 L (34.0-46.0) % Plt Count 386 347 (150-450) k/uL Comprehensive Metabolic Panel 05/17/20 05/18/20 Range/Units 16:07 05:33 Sodium 138 142 (137-145) mmol/L Potassium 4.8 4.8 (3.5-5.1) mmol/L Chloride 103 111 H (98-107) mmol/L Carbon Dioxide 28 27.3 (22-30) mmol/L BUN 37 H 29.0 H (7-17) mg/dL Creatinine 0.59 0.6 (0.52-1.04) mg/dL Glucose 94 83 (74-99) mg/dL Calcium 8.9 8.6 L (8.4-10.2) mg/dL AST 30 (14-36) U/L ALT 7 (4-34) U/L Alkaline Phosphatase 67 (38-126) U/L Total Protein 6.1 L (6.3-8.2) g/dL Albumin 3.6 (3.5-5.0) g/dL Current Medications Generic Name Dose Route Start Last Admin Trade Name Freq PRN Reason Stop Dose Admin Acetaminophen 650 mg 05/18/20 10:27 05/18/20 10:35 Acetaminophen Tab 325 Mg Tab PO 650 mg Q6HR PRN Administration Fever and/ or Pain Alprazolam 0.25 mg 05/17/20 21:00 05/17/20 19:37 Alprazolam 0.25 Mg Tab PO 0.25 mg HS MICHAEL Administration Artificial Tears 1 drops 05/17/20 21:00 05/17/20 19:36 Artificial Tears-Hypromellose Drops 15 Ml Btl BOTH EYES 1 drops HS MICHAEL Administration Sodium Chloride 1,000 mls @ 75 mls/hr 05/17/20 19:15 05/18/20 08:24 Saline 0.9% IV 75 mls/hr .[id number] MICHAEL Administration Naloxone HCl 0.2 mg 05/17/20 17:08 Naloxone 0.4 Mg/Ml 1 Ml Vial IV Q2M PRN Opioid Reversal Pantoprazole Sodium 40 mg 05/18/20 09:00 05/18/20 08:23 Pantoprazole 40 Mg/10 Ml Vial IVP 40 mg BID MICHAEL Administration Intake and Output 05/17/20 05/18/20 05/18/20 22:59 06:59 14:59 Intake Total 600 600 Balance 600 600 Intake: Intake, IV Titration 600 600 Amount Sodium Chloride 0.9% 1, 600 600 000 ml @ 75 mls/hr IV . [id number] [facility]HA[facility] Rx#:[id number] Other: Voiding Method Toilet Toilet Toilet # Voids 1 2 Weight 47.627 kg 05/18/20 05:33 05/18/20 05:33
[2020-05-18] MEDS ORDERED: LIDOCAINE 1% (10MG/ML) FOR IV START INTRADERMA PRN (15:30)
[2020-05-18] MEDS ORDERED: LACTATED RINGERS 1,000 ML IV SCH (15:30)
--- NOTE | 2020-05-18 16:01 | P.PN ---
Subjective Progress Note Date: 05/18/20 This is a 69-year-old female who was recently admitted for syncopal episode along with some nausea and an episode of hematemesis and is being closely monitored. Patient's hemoglobin on admission was 11 and is currently 8.4 today. Patient is scheduled to undergo EGD tomorrow with GI. Patient is having e pisodes of black tarry stools noted. Patient's troponins have been negative. Patient was seen and evaluated by cardiology and underwent an echo showing LV systolic function is normal with an EF between 55 and 60% with a trace of mitral regurgitation and some mild tricuspid regurgitation present. Patient also underwent carotid Doppler study showing moderate to severe plaque of the left carotid bulb with no convincing evidence for hemodynamic significant stenosis with the possibility of underlying uncontrolled hypertension. Review of systems: Constitutional: No reports of fatigue, fever, or chills Cardiovascular: No reports of chest pain or palpitations Respiratory: No reports of shortness of breath or cough GI: No reports of nausea, vomiting, or diarrhea, reports of dark tarry stools : No reports of dysuria or retention Neurovascular: Reports generalized weakness and dizziness with position changes All medications have been reviewed Active Medications Acetaminophen (Acetaminophen Tab 325 Mg Tab) 650 mg PO Q6HR PRN PRN Reason: Fever and/ or Pain Last Admin: 05/18/20 10:35 Dose: 650 mg Documented by: Alprazolam (Alprazolam 0.25 Mg Tab) 0.25 mg PO [facility] Last Admin: 05/17/20 19:37 Dose: 0.25 mg Documented by: Artificial Tears (Artificial Tears-Hypromellose Drops 15 Ml Btl) 1 drops BOTH EYES [facility] Last Admin: 05/17/20 19:36 Dose: 1 drops Documented by: Sodium Chloride (Saline 0.9%) 1,000 mls @ 75 mls/hr IV .[id number] [facility] Last Admin: 05/18/20 08:24 Dose: 75 mls/hr Documented by: Lactated Ringer's (Lactated Ringers) 1,000 mls @ 20 mls/hr IV .Q24H [facility] Lidocaine HCl (Lidocaine 1% (10mg/Ml) For Iv Start) 0.1 ml INTRADERMA PER PROTOCOL PRN PRN Reason: IV Start Naloxone HCl (Naloxone 0.4 Mg/Ml 1 Ml Vial) 0.2 mg IV Q2M PRN PRN Reason: Opioid Reversal Pantoprazole Sodium (Pantoprazole 40 Mg/10 Ml Vial) 40 mg IVP BID [facility] Last Admin: 05/18/20 08:23 Dose: 40 mg Documented by: Objective - Vital Signs Vital signs: Vital Signs Temp 99.0 F 05/18/20 14:51 Pulse 95 05/18/20 14:51 Resp 16 05/18/20 14:51 BP 130/64 05/18/20 14:51 Pulse Ox 99 05/18/20 14:51 Intake & Output 05/17/20 05/18/20 05/18/20 18:59 06:59 18:59 Intake Total 1200 1020 Balance 1200 1020 Weight 47.627 kg Intake: Intake, IV Titration 1200 600 Amount Sodium Chloride 0.9% 1, 1200 600 000 ml @ 75 mls/hr IV . [id number] [facility] Rx#:[id number] Oral 420 Other: Voiding Method Toilet Toilet # Voids 2 2 - Exam Gen: This is a 69-year-old female awake, alert and oriented 3, well-developed, well-nourished, thin built. HEENT: Head is atraumatic, normocephalic. Pupils equal, round. Sclerae is anicteric. NECK: Supple. No JVD. No lymphadenopathy. No thyromegaly. LUNGS: Diminished breath sounds bilaterally with no wheezing or rhonchi noted. No intercostal retractions. HEART: S1, S2 are muffled ABDOMEN: Soft. Bowel sounds are present. No masses. No tenderness. EXTREMITIES: No pedal edema. No calf tenderness. NEUROLOGICAL: Patient is awake, alert and oriented x3. Cranial nerves 2 through 12 are grossly intact. - Labs CBC & Chem 7: 05/18/20 05:33 05/18/20 05:33 Labs: Abnormal Lab Results - Last 24 Hours (Table) 05/17/20 05/17/20 05/17/20 Range/Units 16:07 16:07 16:07 RBC 3.57 L (3.80-5.40) m/uL Hgb 11.0 L (11.4-16.0) gm/dL Hct 31.7 L (34.0-46.0) % Neutrophils # 8.6 H (1.3-7.7) k/uL APTT 20.8 L (22.0-30.0) sec Chloride (96-109) mmol/L Anion Gap (4.00-12.00) mmol/L BUN 37 H (7-17) mg/dL BUN/Creatinine Ratio (12.00-20.00) Ratio Calcium (8.7-10.3) mg/dL Total Protein 6.1 L (6.3-8.2) g/dL Urine Protein (Negative) Urine Ketones (Negative) 05/17/20 05/18/20 05/18/20 Range/Units 16:25 05:33 05:33 RBC 2.86 L (3.80-5.40) m/uL Hgb 8.4 L (11.4-16.0) gm/dL Hct 26.2 L (34.0-46.0) % Neutrophils # (1.3-7.7) k/uL APTT (22.0-30.0) sec Chloride 111 H (96-109) mmol/L Anion Gap 3.70 L (4.00-12.00) mmol/L BUN 29.0 H (7-17) mg/dL BUN/Creatinine Ratio 48.33 H (12.00-20.00) Ratio Calcium 8.6 L (8.7-10.3) mg/dL Total Protein (6.3-8.2) g/dL Urine Protein Trace H (Negative) Urine Ketones 1+ H (Negative) Assessment and Plan Assessment: Acute upper gastrointestinal bleeding with acute blood loss anemia Increased BUN History of peptic ulcer disease previously History of pyloric stenosis, possibly history of carcinoma of the breast History of tubal ligation Mild protein calorie malnutrition with body mass index of 19.2 Full code Recommendations and discussion: Recommend continue current medications, management, and symptomatic treatment. Closely monitor hemoglobin as admission was 11 and currently 8.4. Patient is having bowel movements that are dark and tarry in nature. She is scheduled for an EGD in the morning. Patient will require more than a 2 night stay hospitalization for further testing and complexity of multiple medical issues. Patient recently underwent EGD and colonoscopy with GI in the outpatient setting less than a month ago and was told it was normal. Patient is currently on clear liquids and tolerating with intermittent periods of nausea. She denies any further episodes of hematemesis at this time. Prognosis is guarded. Further recommendations to follow.
--- NOTE | 2020-05-18 17:15 | P.CONS ---
History of Present Illness - Reason for Consult Consult date: 05/18/20 Hematemesis Requesting physician: Aurelia Crowe - Chief Complaint Syncope - History of Present Illness 69-year-old female with multiple medical comorbidities including a history of peptic ulcer disease, prior history of breast cancer and anxiety who presented to the hospital due to a syncopal episode. The patient is currently being evaluated by the cardiology service for syncopal episode. She passed out only briefly. However no reports of episode of vomiting after her syncopal episode at which time she reports passing a clot in her vomitus of blood. She denies any abdominal pain, any further vomiting however she does report some nausea. No melanotic stool reported. Patient is on Protonix therapy at home. She recently underwent EGD and colonoscopy on 05/07/2020 at [facility] and reports that there was no active ulcer on EGD and a normal colonoscopy. The patient's hemoglobin which was 11 on presentation subsequently fell to 8.4. Currently she is denying any other acute complaints with other laboratory evaluation significant for WBC of 10.4, platelet count 386,000, INR 0.9, alkaline phosphatase 67, total bilirubin 0.3, AST of 30 and ALTs 7. Review of Systems REVIEW OF SYSTEMS: CONSTITUTIONAL: Denies any fevers, chills, weight change or fatigue. CARDIOVASCULAR: Denies any chest pain, palpitations high or low blood pressures, she did have a syncopal episode prior to presentation. RESPIRATORY: Denies any shortness of breath, hemoptysis or cough. GENITOURINARY: No dysuria or hematuria. MUSCULOSKELETAL: No weakness reported. SKIN: Denies any new rashes or lesions, jaundice or pallor. PSYCHIATRIC: Denies any depression or anxiety. NEUROLOGY: Denies headache, denies any new focal deficits. EARS/NOSE/THROAT: No recent hearing change, congestion, nasal discharge or sore throat. EYES: No pain in eyes, discharge or change in vision. GASTROINTESTINAL: As per HPI. Past Medical History Past Medical History: Cancer Additional Past Medical History / Comment(s): breast History of Any Multi-Drug Resistant Organisms: None Reported Past Surgical History: Tubal Ligation Additional Past Surgical History / Comment(s): rt lumpectomy, cataracts Past Psychological History: No Psychological Hx Reported Smoking Status: Never smoker Past Alcohol Use History: None Reported Past Drug Use History: None Reported Additional History: Family history: Reviewed with the patient in noncontributory to current medical presentation. Medications and Allergies Home Medications Medication Instructions Recorded Confirmed Type ALPRAZolam [Xanax] 0.25 mg PO HS 05/17/20 05/17/20 History Carboxymethylcellulose Sodium 1 drop BOTH EYES HS 05/17/20 05/17/20 History [Refresh Tears] Patti-C 500mg 500 mg PO PC-SUPPER 05/17/20 05/17/20 History Lactobacillus Rhamnosus GG 1 cap PO DAILY 05/17/20 05/17/20 History [Culturelle] Pantoprazole Sodium [Protonix] 40 mg PO Q48H 05/17/20 05/17/20 History Allergies Allergy/AdvReac Type Severity Reaction Status Date / Time azithromycin AdvReac Nausea & Verified 05/17/20 17:12 Vomiting & Diarrhea ciprofloxacin [From Cipro] AdvReac Nausea & Verified 05/17/20 17:12 Vomiting & Diarrhea Physical Exam Vitals: Vital Signs Temp Pulse Pulse Resp BP BP BP 05/18/20 06:55 98.3 F 84 16 109/62 05/18/20 01:40 98.3 F 63 17 118/67 05/18/20 00:43 18 05/17/20 20:00 98.3 F 98 18 111/72 05/17/20 18:29 98.8 F 96 16 129/60 05/17/20 17:56 98.1 F 93 20 120/63 05/17/20 17:00 91 20 124/85 05/17/20 16:00 81 20 127/62 05/17/20 14:53 98.2 F 91 20 126/55 Pulse Ox 05/18/20 06:55 98 05/18/20 01:40 97 05/18/20 00:43 05/17/20 20:00 99 05/17/20 18:29 97 05/17/20 17:56 99 05/17/20 17:00 98 05/17/20 16:00 100 05/17/20 14:53 99 Intake and Output 05/17/20 05/18/20 05/18/20 22:59 06:59 14:59 Intake Total 600 600 Balance 600 600 Intake: Intake, IV Titration 600 600 Amount Sodium Chloride 0.9% 1, 600 600 000 ml @ 75 mls/hr IV . [id number] [facility] Rx#:[id number] Other: Voiding Method Toilet Toilet Toilet # Voids 1 2 Weight 47.627 kg On physical examination, patient appears comfortable in no apparent distress. HEAD: Normocephalic, atraumatic. EYES: No scleral icterus. No conjunctival injection. MOUTH: No lesions, tongue midline. NECK: Trachea midline, no gross abnormalities. CHEST: Clear to auscultation with no wheezing or rhonchi appreciated. HEART: S1-S2 appreciated. ABDOMEN: Soft, thin and nontender. Bowel sounds are positive. No organomegaly. No guarding or rigidity. EXTREMITIES: No pedal edema. SKIN: No rashes, no jaundice. NEUROLOGIC: Alert and oriented x3. No focal deficits. Results CBC & Chem 7: 05/18/20 05:33 05/18/20 05:33 Labs: Abnormal Lab Results - Last 24 Hours (Table) 05/17/20 05/17/20 05/17/20 Range/Units 16:07 16:07 16:07 RBC 3.57 L (3.80-5.40) m/uL Hgb 11.0 L (11.4-16.0) gm/dL Hct 31.7 L (34.0-46.0) % Neutrophils # 8.6 H (1.3-7.7) k/uL APTT 20.8 L (22.0-30.0) sec Chloride (96-109) mmol/L Anion Gap (4.00-12.00) mmol/L BUN 37 H (7-17) mg/dL BUN/Creatinine Ratio (12.00-20.00) Ratio Calcium (8.7-10.3) mg/dL Total Protein 6.1 L (6.3-8.2) g/dL Urine Protein (Negative) Urine Ketones (Negative) 05/17/20 05/18/20 05/18/20 Range/Units 16:25 05:33 05:33 RBC 2.86 L (3.80-5.40) m/uL Hgb 8.4 L (11.4-16.0) gm/dL Hct 26.2 L (34.0-46.0) % Neutrophils # (1.3-7.7) k/uL APTT (22.0-30.0) sec Chloride 111 H (96-109) mmol/L Anion Gap 3.70 L (4.00-12.00) mmol/L BUN 29.0 H (7-17) mg/dL BUN/Creatinine Ratio 48.33 H (12.00-20.00) Ratio Calcium 8.6 L (8.7-10.3) mg/dL Total Protein (6.3-8.2) g/dL Urine Protein Trace H (Negative) Urine Ketones 1+ H (Negative) Chest x-ray: report reviewed Assessment and Plan (1) Hematemesis Narrative/Plan: 69-year-old female presenting for syncopal episode. She reported one episode of hematemesis after the syncope and is had no further episodes also denying any abdominal pain, melena or hematochezia. She is reporting some nausea. She did recently undergo evaluation with EGD and colonoscopy on 05/07/2020 and states that previously seen peptic ulcer was healed with a normal colonoscopy. Unclear etiology, may be related to gastritis, esophagitis, AVM, Dieulafoy lesion or other etiology. Current Visit: Yes Status: Acute Code(s): K92.0 - HEMATEMESIS SNOMED Code(s): 3825290 (2) Normocytic normochromic anemia Current Visit: Yes Status: Acute Code(s): D64.9 - ANEMIA, UNSPECIFIED SNOMED Code(s): 83981023 Plan: Supportive care Full liquid diet Anemia laboratory evaluation ordered, anemia may be dilutional Nothing by mouth after midnight Continue monitor hemoglobin and hematocrit and transfuse as needed Plan for EGD tomorrow for further evaluation Continue PPI therapy Thank you for allowing us to participate in the care of the patient
[2020-05-18] MEDS: ALPRAZolam 0.25 MG TAB PO SCH (21:28)
[2020-05-18] MEDS: ARTIFICIAL TEARS-HYPROMELLOSE DROPS 15 ML BTL BOTH EYES SCH (21:32)
[2020-05-19] MEDS: SODIUM CHLORIDE 0.9% 1,000 ML IV SCH ×2 (05:14→18:19)
[2020-05-19] MEDS: PANTOPRAZOLE 40 MG/10 ML VIAL IVP SCH ×2 (08:38→20:16)
[2020-05-19 09:26] LABS: HCT 25.8 % (37.2-46.3); HGB 8.5 g/dL (12.0-15.0); MCH 30.2 pg (27.0-32.0); MCHC 32.9 g/dL (32.0-37.0); MCV 91.8 fL (80.0-97.0); Mean Platelet Volume 10.2 fL (9.5-12.2); Platelet Count 361 X 10*3/uL (140-440); RBC 2.81 X 10*6/uL (4.10-5.20); RDW 12.7 % (11.5-14.5); WBC 8.51 X 10*3/uL (4.50-10.00)
[2020-05-19 10:04] LABS: Reticulocyte % 3.06 % (0.10-1.80)
--- NOTE | 2020-05-19 11:00 | P.PN ---
Subjective Progress Note Date: 05/19/20 CHIEF COMPLAINT: Syncope HISTORY OF PRESENT ILLNESS: 05/18/2020 This is a 69-year-old female with a past medical history significant for breast cancer and previous ulcers. 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 We have been asked to see the patient in consultation for syncope. Patient examined this morning the bedside. Patient states that yesterday she began feeling nauseous and felt like she was going to pass out. She states that she lowered herself to the floor and then she did pass out. She states that she was only out for a few seconds. When she woke up she threw up a large amount of old blood clots. She reports having an EGD and colonoscopy approximately 10 days ago which she states was "okay". Patient denies any dizziness or lighthea dedness. She denies chest pain or pressure. Denies shortness of breath. 05/19/2020 Patient examined at the bedside. Patient denies chest pain or pressure. She denies shortness of breath. She denies any further episodes of hematemesis. Hemoglobin 8.5 today, down from 11 on admission. Patient is scheduled for EGD today. Echocardiogram completed revealing ejection fraction 55-60%, trace mitral regurgitation, and mild tricuspid regurgitation. Carotid Doppler revealed moderate to severe plaque left carotid bulb. No convincing evidence for hemodynamic significant stenosis. PHYSICAL EXAM: VITAL SIGNS: Reviewed. GENERAL: Well-developed in no acute distress. HEENT: Head is normocephalic. Pupils are equal, round. Sclerae anicteric. Mucous membranes of the mouth are moist. Neck supple. No JVD or thyromegaly. LUNGS: Respirations even and unlabored. Lungs essentially clear to auscultation bilaterally. HEART: Regular rate and rhythm. S1 and S2 heard. ABDOMEN: Soft. Nondistended. Nontender. EXTREMITIES: Normal range of motion. No clubbing or cyanosis. Peripheral pulses intact. No lower extremity edema NEUROLOGIC: Awake and alert. Oriented x 3. ASSESSMENT: Hematemesis Acute blood loss anemia Syncope History of breast cancer PLAN: Monitor hemoglobin Patient scheduled for EGD today with GI Patient is stable from a cardiac perspective. We will sign off. Please reconsult if needed. Nurse practitioner note has been reviewed by physician. Signing provider agrees with the documented findings, assessment, and plan of care. Objective - Vital Signs Vital signs: Vital Signs Temp 98.5 F 03/02/21 06:59 Pulse 81 05/19/20 06:59 Resp 16 05/19/20 08:00 BP 139/47 05/19/20 06:59 Pulse Ox 98 05/19/20 06:59 Intake & Output 05/18/20 05/19/20 05/19/20 18:59 06:59 18:59 Intake Total 1020 Balance 1020 Intake: Intake, IV Titration 600 Amount Sodium Chloride 0.9% 1, 600 000 ml @ 75 mls/hr IV . [id number] [facility] Rx#:[id number] Oral 420 Other: Voiding Method Toilet Toilet Toilet # Voids 2 1 # Bowel Movements 1 1 - Labs CBC & Chem 7: 05/19/20 05:16 05/18/20 05:33 Labs: Abnormal Lab Results - Last 24 Hours (Table) 05/19/20 05/19/20 Range/Units 05:16 05:16 RBC 2.81 L (4.10-5.20) X 10*6/uL Hgb 8.5 L (12.0-15.0) g/dL Hct 25.8 L (37.2-46.3) % Retic Count 3.06 H (0.10-1.80) %
[2020-05-19 12:11] LABS: % Iron Saturation 27.27 (12.00-45.00); African American GFR (CKD) 113.7 (60.0-200.0); Anion Gap 8.1 mmol/L (4.00-12.00); Calcium 8.4 mg/dL (8.7-10.3); Carbon Dioxide 22.9 mmol/L (21.6-31.8); Folate, Serum 23.3 ng/mL; Non-African American GFR(CKD) 98.1 (60.0-200.0); Potassium 4.5 mmol/L (3.5-5.5)
[2020-05-19] MEDS ORDERED: IV FLUID CONTINUATION 1,000 ML IV ONE (14:59)
[2020-05-19] MEDS ORDERED: PROPOFOL 10 MG/ML 20 ML VIAL IV ONE (15:00)
[2020-05-19] MEDS ORDERED: LIDOCAINE 1% INJ 10MG/ML (20 ML MDV) ONE (15:00)
--- NOTE | 2020-05-19 15:32 | P.PCN ---
Date of Procedure: 05/19/20 Procedure(s) Performed: BRIEF HISTORY: Patient is a 69-year-old, pleasant, white female scheduled for an upper endoscopy as a part of evaluation of fine episodes of hematemesis of which was hospitalized yesterday. Hemoglobin stable at 30 mg/dL. She had an EGD and colonoscopy done 2 weeks ago at [address] at revealed early pyloric stenosis and scarring in the antrum from prior peptic ulcer disease as well as mild gastritis. Because of the upper GI bleed she is scheduled for repeat upper endoscopy. PROCEDURE PERFORMED: Esophagogastroduodenoscopy with biopsy. PREOPERATIVE DIAGNOSIS: Hematemesis. IV sedation per anesthesia. PROCEDURE: After informed consent was obtained, the patient was brought into the endoscopy unit. IV sedation was administered by Anesthesia under continuous monitoring. Initially the Olympus GIF-140 video endoscope was inserted into the mouth. Esophagus intubated without any difficulty. It was gradually advanced into the stomach and duodenum and carefully examined. The bulb and the second part of the duodenum appeared normal. The scope at this time was withdrawn to the stomach, adequately insufflated with air, and upon careful examination, mucosa of the antrum had scarring from prior peptic ulcer disease. Also there was a small superficial linear ulceration along the scar tissue with no active bleeding which was biopsied. The rest of the body, cardia and the fundus appeared normal. The scope was then withdrawn into the esophagus. The GE junction was located at 39 cm from the incisors. The esophagus appeared normal. There were no erosions or ulcerations seen and the patient tolerated the procedure well. IMPRESSION: 1. Early pyloric stenosis and the scope could not be advanced into the duodenum. 2. Superficial linear antral ulcer at the site of scarring from prior peptic ulcer disease with no active bleeding. RECOMMENDATIONS: The findings of this examination were discussed with the patient.. She'll be continued on Protonix 40 mg daily and diet will be advanced as tolerated. She can be discharged home tomorrow.
[2020-05-19] MEDS: ALPRAZolam 0.25 MG TAB PO SCH (20:16)
[2020-05-19] MEDS: ARTIFICIAL TEARS-HYPROMELLOSE DROPS 15 ML BTL BOTH EYES SCH (20:17)
[2020-05-20 01:50] VITALS: RESP 16
[2020-05-20] MEDS: SODIUM CHLORIDE 0.9% 1,000 ML IV SCH (04:46)
[2020-05-20 07:14] VITALS: BP 132/57; PULSE 73; TEMP 98.1
[2020-05-20] MEDS: PANTOPRAZOLE 40 MG/10 ML VIAL IVP SCH (08:02)
--- NOTE | 2020-05-20 08:41 | P.PN ---
Subjective Progress Note Date: 05/19/20 This is a 69-year-old female who was recently admitted for syncopal episode along with some nausea and an episode of hematemesis and is being closely monitored. Patient's hemoglobin on admission was 11 and is currently 8.4 today. Patient is scheduled to undergo EGD tomorrow with GI. Patient is having e pisodes of black tarry stools noted. Patient's troponins have been negative. Patient was seen and evaluated by cardiology and underwent an echo showing LV systolic function is normal with an EF between 55 and 60% with a trace of mitral regurgitation and some mild tricuspid regurgitation present. Patient also underwent carotid Doppler study showing moderate to severe plaque of the left carotid bulb with no convincing evidence for hemodynamic significant stenosis with the possibility of underlying uncontrolled hypertension. 05/19/2020 Patient is seen and evaluated this morning continues to have episodes of black tarry stools that have lessened in severity. Patient is scheduled to undergo EGD today with GI and currently pending. Hemoglobin is 8.5 this morning. Patient was also having episodes of dizziness and possible syncope upon admission. Patient has been up and walking and denies any recurrent dizziness, lightheadedness, or feelings of passing out. Patient is nothing by mouth for the procedure and denies any nausea or vomiting. Patient denies chest pain, shortness of breath, or palpitations. Patient is afebrile. Review of systems: Constitutional: No reports of fatigue, fever, or chills Cardiovascular: No reports of chest pain or palpitations Respiratory: No reports of shortness of breath or cough GI: No reports of nausea, vomiting, or diarrhea, reports continued dark tarry stools : No reports of dysuria or retention Neurovascular: Reports generalized weakness All medications have been reviewed Active Medications Acetaminophen (Acetaminophen Tab 325 Mg Tab) 650 mg PO Q6HR PRN PRN Reason: Fever and/ or Pain Last Admin: 05/18/20 10:35 Dose: 650 mg Documented by: Alprazolam (Alprazolam 0.25 Mg Tab) 0.25 mg PO [facility] Last Admin: 05/18/20 21:28 Dose: 0.25 mg Documented by: Artificial Tears (Artificial Tears-Hypromellose Drops 15 Ml Btl) 1 drops BOTH EYES [facility] Last Admin: 05/18/20 21:32 Dose: 1 drops Documented by: Sodium Chloride (Saline 0.9%) 1,000 mls @ 75 mls/hr IV .[id number] [facility] Last Admin: 05/19/20 05:14 Dose: 75 mls/hr Documented by: Lidocaine HCl (Lidocaine 1% (10mg/Ml) For Iv Start) 0.1 ml INTRADERMA PER PROTOCOL PRN PRN Reason: IV Start Naloxone HCl (Naloxone 0.4 Mg/Ml 1 Ml Vial) 0.2 mg IV Q2M PRN PRN Reason: Opioid Reversal Pantoprazole Sodium (Pantoprazole 40 Mg/10 Ml Vial) 40 mg IVP BID [facility] Last Admin: 05/19/20 08:38 Dose: 40 mg Documented by: Objective - Vital Signs Vital signs: Vital Signs Temp 97.9 F 05/19/20 13:38 Pulse 87 05/19/20 15:57 Resp 16 05/19/20 15:57 BP 133/67 05/19/20 15:57 Pulse Ox 98 05/19/20 15:57 Intake & Output 05/18/20 05/19/20 05/19/20 18:59 06:59 18:59 Intake Total 1020 50 Balance 1020 50 Intake: IV 50 Intake, IV Titration 600 Amount Sodium Chloride 0.9% 1, 600 000 ml @ 75 mls/hr IV . [id number] [facility] Rx#:[id number] Oral 420 Other: Voiding Method Toilet Toilet Toilet # Voids 2 1 1 # Bowel Movements 1 1 - Exam Gen: This is a 69-year-old female awake, alert and oriented 3, well-developed, well-nourished, thin built. Temp is 97.9F, pulse is 86, respirations are 18, blood pressure is 149/70, oxygen saturation is 100% on room air. HEENT: Head is atraumatic, normocephalic. Pupils equal, round. Sclerae is anicteric. NECK: Supple. No JVD. No lymphadenopathy. No thyromegaly. LUNGS: Diminished breath sounds bilaterally with no wheezing or rhonchi noted. No intercostal retractions. HEART: S1, S2 are muffled ABDOMEN: Soft. Bowel sounds are present. No masses. No tenderness. EXTREMITIES: No pedal edema. No calf tenderness. NEUROLOGICAL: Patient is awake, alert and oriented x3. Cranial nerves 2 through 12 are grossly intact. - Labs CBC & Chem 7: 05/19/20 05:16 05/19/20 05:16 Labs: Abnormal Lab Results - Last 24 Hours (Table) 05/19/20 05/19/20 05/19/20 Range/Units 05:16 05:16 05:16 RBC 2.81 L (4.10-5.20) X 10*6/uL Hgb 8.5 L (12.0-15.0) g/dL Hct 25.8 L (37.2-46.3) % Retic Count 3.06 H (0.10-1.80) % Creatinine 0.5 L (0.6-1.5) mg/dL BUN/Creatinine Ratio 22.00 H (12.00-20.00) Ratio Calcium 8.4 L (8.7-10.3) mg/dL Assessment and Plan Assessment: Acute upper gastrointestinal bleeding with acute blood loss anemia Status post EGD showing early pyloric stenosis and superficial linear antral ulcer Increased BUN History of peptic ulcer disease previously History of pyloric stenosis, possibly history of carcinoma of the breast History of tubal ligation Mild protein calorie malnutrition with body mass index of 19.2 Full code Recommendations and discussion: Recommend continue current medications, management, and symptomatic treatment. Closely monitor hemoglobin as admission was 11 and currently 8.5. Patient is having bowel movements that are dark and tarry in nature. Patient underwent EGD showing early pyloric stenosis with the scope unable to be advanced into the duodenum with superficial linear antral ulcer at the site of scarring from prior peptic ulcer disease with no active bleeding noted. Patient is to continue with Protonix 40 mg daily and will reinitiate diet and monitor closely for tolerance. Will repeat CBC in a.m. Prognosis is guarded. Further recommendations to follow. Possible discharge in 24 hours.
[2020-05-20 11:03] LABS: Basophils % (A) 0 %; Eosinophils % (A) 1 %; HCT 26.7 % (34.0-46.0); Lymphocytes # (A) 1.5 k/uL (1.0-4.8); Lymphocytes % (A) 21 %; MCH 28.9 pg (25.0-35.0); MCHC 32.6 g/dL (31.0-37.0); MCV 88.6 fL (80.0-100.0); Monocytes # (A) 0.4 k/uL (0-1.0); Monocytes % (A) 5 %; Neutrophils # (A) 4.9 k/uL (1.3-7.7); Neutrophils % (A) 71 %; Platelet Count 426 k/uL (150-450); RBC 3.02 m/uL (3.80-5.40); RDW 13.4 % (11.5-15.5); WBC 6.9 k/uL (3.8-10.6)
[2020-05-20 11:11] LABS: HGB 8.7 gm/dL (11.4-16.0)
[2020-05-20 13:51] VITALS: BMI 19.2
--- NOTE | 2020-05-20 14:28 | P.PN ---
Subjective Progress Note Date: 05/20/20 Principal diagnosis: Hematemesis This is a 69-year-old female with multiple medical comorbidities including a history of peptic ulcer disease, prior history of breast cancer and anxiety who presented to the hospital due to a syncopal episode. The patient is currently being evaluated by the cardiology service for syncopal episode. She passed out only briefly. However no reports of episode of vomiting after her syncopal episode at which time she reports passing a clot when she vomited. She denies any abdominal pain, any further vomiting however she does report some nausea. No melanotic stool reported. Patient is on Protonix therapy at home. She recently underwent EGD and colonoscopy on 05/07/2020 at the [facility] and reports that there was no active ulcer on EGD and a normal colonoscopy. Issue and underwent upper endoscopy yesterday which revealed early pyloric stenosis, superficial lineal antral ulcer with scarring from previous ulcer. Patient denies any further abdominal pain, nausea, or vomiting. Is tolerating a regular diet. Denies any hematemesis or dark colored stools. Objective - Vital Signs Vital signs: Vital Signs Temp 98.1 F 05/20/20 06:45 Pulse 73 05/20/20 06:45 Resp 16 05/20/20 06:45 BP 132/57 05/20/20 06:45 Pulse Ox 98 05/20/20 06:45 Intake & Output 05/19/20 05/20/20 05/20/20 18:59 06:59 18:59 Intake Total 150 1080 240 Balance 150 1080 240 Intake: IV 50 600 Sodium Chloride 0.9% 1, 600 000 ml @ 75 mls/hr IV . [id number] [facility] Rx#:[id number] Oral 100 480 240 Other: Voiding Method Toilet Toilet # Voids 1 3 # Bowel Movements 1 - Exam General appearance: The patient is alert, oriented, appears in no acute dis tress. HET: Head is normocephalic and atraumatic. Conjunctiva pink. Sclera anicteric. Neck: Supple without lymphadenopathy. Abdomen: Soft, nontender, nondistended with bowel sounds. No guarding or rigidity. Extremities: Normal skin color and turgor. No pedal edema Skin: No rashes, no jaundice Neurological: No focal deficits. Alert and oriented 3. - Labs CBC & Chem 7: 05/20/20 09:54 05/19/20 05:16 Labs: Abnormal Lab Results - Last 24 Hours (Table) 05/19/20 05/19/20 Range/Units 05:16 05:16 Retic Count 3.06 H (0.10-1.80) % Creatinine 0.5 L (0.6-1.5) mg/dL BUN/Creatinine Ratio 22.00 H (12.00-20.00) Ratio Calcium 8.4 L (8.7-10.3) mg/dL Assessment and Plan (1) Hematemesis Narrative/Plan: 69-year-old female presenting for syncopal episode. She reported one episode of hematemesis after the syncope and is had no further episodes also denying any abdominal pain, melena or hematochezia. She is reporting some nausea. She did recently undergo evaluation with EGD and colonoscopy on 05/07/2020 and states that previously seen peptic ulcer was healed with a normal colonoscopy. Unclear etiology, may be related to gastritis, esophagitis, AVM, Dieulafoy lesion or other etiology. Patient is status post EGD with findings and include early pyloric stenosis, superficial linear antral ulcer with scarring where previous ulcer was located. No active bleeding. Status: Acute Code(s): K92.0 - HEMATEMESIS SNOMED Code(s): 9907954 (2) Normocytic normochromic anemia Status: Acute Code(s): D64.9 - ANEMIA, UNSPECIFIED SNOMED Code(s): 45143468 Plan: 1. Supportive care 2. Repeat CBC revealed 3. Diabetes tolerated 4. Continue Protonix 5. Patient to follow-up with gastroenterology in 1-2 weeks for biopsy results Thank you for this consultation Dr. Leeroy Sims I agree with the dictator's note, documented as a scribe by Eli Jimenez.
--- NOTE | 2020-05-21 09:59 | P.DS ---
Providers Date of admission: 05/18/20 15:34 Expected date of discharge: 05/20/20 Attending physician: Aurelia Crowe Consults: 05/17/20 17:10 Consult Physician Urgent Consulting Provider: Lucia Sims Consult Reason/Comments: acute hematemesis, hx pud Do you want consulting provider notified?: Yes Primary care physician: Cesar Ledezma [facility] Course: Final diagnosis Acute upper gastrointestinal bleeding with acute blood loss anemia Status post EGD showing early pyloric stenosis and superficial linear antral ulcer Increased BUN History of peptic ulcer disease previously History of pyloric stenosis, possibly history of carcinoma of the breast History of tubal ligation Mild protein calorie malnutrition with body mass index of 19.2 Full code Discharge disposition Patient is being discharged in a stable condition with guarded prognosis to home. Patient will follow-up with Dr. Ledezma in the outpatient setting upon discharge. Patient is also instructed to follow-up with GI Dr. Sims in the outpatient setting. Patient will continue on Protonix 40 mg twice daily along with Carafate until GI follow-up. Total time taken is greater than 35 minutes. Hospital course This is a 69-year-old female who was recently admitted with syncopal episode along with some nausea and an episode of hematemesis and was being closely monitored. Patient continued to have dark tarry stools during hospitalization and underwent EGD showing early pyloric stenosis with inability of the scope to be advanced into the duodenum, superficial linear antral ulcer at the site of scarring from prior peptic ulcer disease with no active bleeding. Patient will be continued on Protonix 40 mg twice a day along with Carafate and has met with dietitian in regards to meal planning and dietary recommendations with pyloric stenosis. Patient is to continue with a soft diet. Repeat labs ordered in 2-3 days to monitor hemoglobin. Hemoglobin today is 8.7 with no further reports of dark stools noted although patient has not had another bowel movement yet. Patient will follow-up with GI in the outpatient setting along with her primary care provider. Patient was also seen and evaluated by cardiology recommending outpatient follow-up. No further dizziness or syncopal episodes noted. Currently no reports of chest pain, shortness of breath, or palpitations. Patient is afebrile. No reports of nausea or vomiting and patient is tolerating diet. Patient is asking to go home today. Patient will be discharged home today. On exam vital signs are stable. Cardio S1, S2 are muffled. Respiratory system shows diminished breath sounds at the bases with no wheezing or rhonchi noted. Abdomen is soft and nontender. Nervous system shows no focal deficits. Please refer to medication reconciliation sheet for a list of medications. Patient Condition at Discharge: Stable Plan - Discharge Summary New Discharge Prescriptions: New Sucralfate [Carafate] 1 gm PO TID 30 Days #90 tablet Acetaminophen Tab [Tylenol] 650 mg PO Q6HR PRN tab PRN Reason: Fever And/ Or Pain Continue Lactobacillus Rhamnosus GG [Culturelle] 1 cap PO DAILY Patti-C 500mg 500 mg PO PC-SUPPER ALPRAZolam [Xanax] 0.25 mg PO HS Carboxymethylcellulose Sodium [Refresh Tears] 1 drop BOTH EYES HS Changed Pantoprazole Sodium [Protonix] 40 mg PO BID 30 Days #60 cap Discharge Medication List ALPRAZolam [Xanax] 0.25 mg PO HS 05/17/20 [History] Carboxymethylcellulose Sodium [Refresh Tears] 1 drop BOTH EYES HS 05/17/20 [History] Patti-C 500mg 500 mg PO PC-SUPPER 05/17/20 [History] Lactobacillus Rhamnosus GG [Culturelle] 1 cap PO DAILY 05/17/20 [History] Acetaminophen Tab [Tylenol] 650 mg PO Q6HR PRN tab 05/20/20 [Rx] Pantoprazole Sodium [Protonix] 40 mg PO BID 30 Days #60 cap 05/20/20 [Rx] Sucralfate [Carafate] 1 gm PO TID 30 Days #90 tablet 05/20/20 [Rx] Follow up Appointment(s)/Referral(s): David Ledezma MD [Primary Care Provider] - 06/01/20 11:20 am Lucia Sims MD [STAFF PHYSICIAN] - 05/28/20 9:45 am (Appointment will be with Oksana Rodriguez) Ambulatory/Diagnostic Orders: Complete Blood Count w/diff [LAB.AMB] Time Frame: 2 Days, Location: None Selected Patient Instructions/Handouts: Soft Diet (DC), Pyloric Stenosis (DC) Activity/Diet/Wound Care/Special Instructions: Activity Limited until follow-up Any with Protonix twice daily until GI follow-up Follow-up with GI in the outpatient setting Follow up with primary care provider upon discharge Repeat labs in 2-3 days to monitor hemoglobin Okay to resume aspirin Continue soft diet Discharge Disposition: HOME SELF-CARE
== END 2020-05-20 13:39 | disposition home or self-care (01) | DRG 378 ==
LOC: EC 14:48 → 6NMEDSUR 17:08 → OBSVTOIN 05-18 15:34
PROVIDERS: ADMIT Internal Medicine; ATTEND Internal Medicine
PROC: 0DB78ZX Excision of Stomach, Pylorus, Via Natural or Artificial Opening Endoscopic, Diagnostic (ICD-10-PCS; principal; 2020-05-19 13:25)
DX: K25.4 Chronic or unspecified gastric ulcer with hemorrhage (principal); D62 Acute posthemorrhagic anemia; E44.1 Mild protein-calorie malnutrition; K31.1 Adult hypertrophic pyloric stenosis; Z68.1 Body mass index [BMI] 19.9 or less, adult; Z20.822 Contact with and (suspected) exposure to COVID-19; K29.70 Gastritis, unspecified, without bleeding; K92.0 Hematemesis; R55 Syncope and collapse; F41.9 Anxiety disorder, unspecified; I07.1 Rheumatic tricuspid insufficiency; I10 Essential (primary) hypertension; I65.22 Occlusion and stenosis of left carotid artery; Z71.3 Dietary counseling and surveillance; Z79.899 Other long term (current) drug therapy; Z98.51 Tubal ligation status; Z98.42 Cataract extraction status, left eye; Z98.41 Cataract extraction status, right eye; Z98.890 Other specified postprocedural states; Z85.3 Personal history of malignant neoplasm of breast; Z87.11 Personal history of peptic ulcer disease; Z88.1 Allergy status to other antibiotic agents
CPT/HCPCS: 36415; 43239; 71046; 80048; 80053; 81003; 82607; 82728; 82746; 83540; 83550; 83735; 84466; 84484; 85025; 85027; 85045; 85610; 85730; 87635; 88305; 93005; 93306; 93880; 99285

== ENCOUNTER → 2020-09-07 | Outpatient (CLI) | payer MEDICARE ==
--- NOTE | 2020-09-08 08:35 | MM ---
Reason for exam: additional evaluation requested from prior study. Last mammogram was performed 1 year ago. History: Patient is postmenopausal, has history of breast cancer at age 56, and previous chest radiation therapy. Malignant US right core biopsy of the right breast, July 05, 2007. Lumpectomy, 2007. Radiation therapy. Took hormonal contraceptives for 7 years. Took estrogen for 6 years beginning at age 50. Took antineoplastic for 5 years beginning at age 56. Physical Findings: Nurse did not find any significant physical abnormalities on exam. MG 3D Diag Mammo W/Cad CINDY Bilateral CC and MLO view(s) were taken. Prior study comparison: September 05, 2019, bilateral MG 3d screening mammo w/cad. August 08, 2018, bilateral MG 3d diag mammo w/cad CINDY. There are scattered fibroglandular densities. Right post operative changes. These results were verbally communicated with the patient and result sheet given to the patient on 09/07/20. ASSESSMENT: Benign, BI-RAD 2 RECOMMENDATION: Routine screening mammogram of both breasts in 1 year.
== END | disposition home or self-care (01) ==
LOC: RADMAMWWP 14:09
PROVIDERS: ATTEND Family Medicine
DX: N64.89 Other specified disorders of breast (principal); Z78.0 Asymptomatic menopausal state; Z85.3 Personal history of malignant neoplasm of breast
CPT/HCPCS: 77066; G0279; 77062

== ENCOUNTER → 2021-10-12 | Outpatient (CLI) | payer MEDICARE ==
--- NOTE | 2021-10-13 16:52 | MM ---
Reason for Exam: Screening (asymptomatic). Last mammogram was performed 1 year(s) and 1 month(s) ago. Patient History: Menarche at age 11. First Full-Term at age 27. Postmenopausal. Breast cancer, age 56. Previous chest radiation therapy. Estrogen, starting at age 50 for 6 years. Patient used Hormonal Contraceptives for 7 years. 2007, Lumpectomy. 07/05/2007, Malignant Core Biopsy on the right side. 2007, Radiation Therapy on the right side. Radiation Therapy. Prior Study Comparison: 08/08/2018 Bilateral Diagnostic Mammogram, [facility]. 09/05/2019 Bilateral Screening Mammogram, [facility]. 09/07/2020 Bilateral Diagnostic Mammogram, [facility]. Tissue Density: The breast tissue is heterogeneously dense. This may lower the sensitivity of mammography. Findings: Analyzed By CAD. There is no suspicious group of microcalcifications or new suspicious mass in either breast. Postsurgical changes of the right upper outer quadrant posteriorly. No significant change from prior examination. Overall Assessment: Benign, BI-RAD 2 Management: Screening Mammogram of both breasts in 1 year. A clinical breast exam by your physician is recommended on an annual basis and results should be correlated with mammographic findings. Electronically signed and approved by: Stevenson Stevenson D.O.
== END | disposition home or self-care (01) ==
LOC: RADMAMWWP 11:50
PROVIDERS: ATTEND Family Medicine
DX: Z12.31 Encounter for screening mammogram for malignant neoplasm of breast (principal); Z78.0 Asymptomatic menopausal state
CPT/HCPCS: 77063; 77067

== ENCOUNTER → 2022-07-27 | Outpatient (CLI) | payer MEDICARE ==
--- NOTE | 2022-07-27 11:17 | BD ---
EXAMINATION TYPE: Axial Bone Density DATE OF EXAM: 07/27/2022 CLINICAL HISTORY: 71 years old Female. ICD-10 CODE: M89.9 DISORDER OF BONE, UNSPECIFIED Height: 62 Weight: 96.5 FRAX RISK QUESTIONS: Alcohol (3 or more units per day): no Family History (Parent hip fracture): no Glucocorticoids (More than 3mos): no (Ex: prednisone, prednisolone, methylprednisolone, dexamethasone, and hydrocortisone). History of Fracture in Adulthood: yes Secondary Osteoporosis: 1. Type 1 Diabetes: no 2. Hyperthyroidism: no 3. Menopause before 45: no 4. Malnutrition: no 5. Chronic liver disease: no Rheumatoid Arthritis: no Current Tobacco Use: no RISK FACTORS HISTORY OF: Surgery to Spine/Hip(right/left)/Wrist (right/left): no Family History of Osteoporosis: no Active: yes Diet low in dairy products/other sources of calcium: no Postmenopausal woman: yes Lost more than 2 inches in height since high school: no MEDICATIONS: Additional History: EXAM MEASUREMENTS: Bone mineral densitometry was performed using the [employer]. Bone mineral density as measured about the Lumbar spine is: ----- L1-L4(G/cm2): 0.997 T Score Values are as follows: ----- L1: -1.3 ----- L2: -1.6 ----- L3: -1.2 ----- L4: -2.1 ----- L1-L4: -1.5 Z Score Values are as follows: ----- L1: 1.1 ----- L2: 0.8 ----- L3: 1.2 ----- L4: 0.3 ----- L1-L4: 0.9 Bone mineral density has: decreased -5.4 % since study of: 04.02.2020 Bone mineral density about the R hip (g/cm2): 0.776 Bone mineral density about the L hip (g/cm2): 0.737 T Score values are as follows: -----R Neck: -2.1 -----L Neck: -2.2 -----R Total: -1.8 -----L Total: -2.2 Z Score values are as follows: -----R Neck: 0.1 -----L Neck: 0.0 -----R Total: 0.3 -----L Total: 0.0 Bone mineral density has: decreased -2.7 % since study of: 1..2020 FRAX%s: The graph provided illustrates a 17.5% chance for a major osteoporotic fx and a 4.7% chance f or the hips probability for fx in 10 years time. IMPRESSION: Osteopenia (T Score between -2.5 and -1). There is slightly increased risk of fracture and the patient may be considered for treatment. Re-Screen 2-5 years. NOTE: T-SCORE=SD OF THE YOUNG ADULT MEAN.
== END | disposition home or self-care (01) ==
LOC: RADBDWWP 10:19
PROVIDERS: ATTEND Family Medicine
DX: M85.89 Other specified disorders of bone density and structure, multiple sites (principal)
CPT/HCPCS: 77080

== ENCOUNTER → 2022-10-14 | Outpatient (CLI) | payer MEDICARE ==
--- NOTE | 2022-10-17 15:22 | MM ---
Reason for Exam: Screening (asymptomatic). Last screening mammogram was performed 12 month(s) ago. Patient History: Menarche at age 11. First Full-Term at age 27. Postmenopausal. Breast cancer, right, age 56. Previous chest radiation therapy. Estrogen, starting at age 50 for 6 years. Patient used Hormonal Contraceptives for 7 years. 2007, Lumpectomy. 07/05/2007, Malignant Core Biopsy on the right side. 2007, Radiation Therapy on the right side. Radiation Therapy. Prior Study Comparison: 09/05/2019 Bilateral Screening Mammogram, [facility]. 09/07/2020 Bilateral Diagnostic Mammogram, [facility]. 10/12/2021 Bilateral MG 3D screening mammo w/cad, [facility]. Tissue Density: The breast tissue is heterogeneously dense. This may lower the sensitivity of mammography. Findings: Analyzed By CAD. Pattern appears stable. Multiple surgical clips are in the upper outer right breast. No significant interval changes are evident. Benign punctate calcification remains within the bilateral breasts. No suspicious groups of microcalcifications, spiculated or lobular masses, architectural distortion or other secondary signs of malignancy are mammographically apparent. Overall Assessment: Benign, BI-RAD 2 Management: Screening Mammogram of both breasts in 1 year. A negative mammogram report should not preclude additional follow up of suspicious palpable abnormalities. Patient should continue monthly self breast exam. A clinical breast exam by your physician is recommended on an annual basis and results should be correlated with mammographic findings. Electronically signed and approved by: Bob Acharya D.O. Radiologis
== END | disposition home or self-care (01) ==
LOC: RADMAMWWP 14:22
PROVIDERS: ATTEND Family Medicine
DX: Z12.31 Encounter for screening mammogram for malignant neoplasm of breast (principal); Z78.0 Asymptomatic menopausal state; Z92.3 Personal history of irradiation
CPT/HCPCS: 77063; 77067

== ENCOUNTER → 2023-10-18 | Outpatient (CLI) | payer MEDICARE ==
--- NOTE | 2023-10-18 13:01 | MM ---
Reason for Exam: Screening (asymptomatic). Last screening mammogram was performed 12 month(s) ago. Patient History: Menarche at age 11. First Full-Term at age 27. Postmenopausal. Breast cancer, right, age 56. Previous chest radiation therapy. Estrogen, starting at age 50 for 6 years. Patient used Hormonal Contraceptives for 7 years. 2007, Lumpectomy. 07/05/2007, Malignant Core Biopsy on the right side. 2007, Radiation Therapy on the right side. Radiation Therapy. Prior Study Comparison: 09/07/2020 Bilateral Diagnostic Mammogram, [facility]. 10/12/2021 Bilateral MG 3D screening mammo w/cad, [facility]. 10/14/2022 Bilateral MG 3D screening mammo w/cad, [facility]. Tissue Density: There are scattered areas of fibroglandular density. Findings: Analyzed By CAD. Right breast biopsy clip. Right breast: There is no suspicious group of microcalcifications or new suspicious mass. Left breast: There is no suspicious group of microcalcifications or new suspicious mass. Overall Assessment: Negative, BI-RAD 1 Management: Screening Mammogram of both breasts in [address] [facility] will attempt to contact patient to return for supplemental views and ultrasound if indicated. Patient should continue monthly self-breast exams. A clinical breast exam by your physician is recommended on an annual basis. This exam should not preclude additional follow-up of suspicious palpable abnormalities. Note on Ca scores and lifetime risk: 1. A Ca score greater than 3% is considered moderate risk. If this is the case, consider specialist referral to assess eligibility for a risk reducing agent. 2. If overall lifetime risk for the development of breast cancer is 20% or higher, the patient may qualify for future screening with alternating mammogram and breast MRI. Electronically signed and approved by: Dereje Estrada DO
== END | disposition home or self-care (01) ==
LOC: RADMAMWWP 09:49
PROVIDERS: ATTEND Family Medicine
DX: Z12.31 Encounter for screening mammogram for malignant neoplasm of breast (principal); Z78.0 Asymptomatic menopausal state; R92.323 Mammographic fibroglandular density, bilateral breasts
CPT/HCPCS: 77063; 77067

== ENCOUNTER → 2024-06-24 | Outpatient (CLI) | payer MEDICARE ==
[2024-06-24 15:11] LABS: HCT 43.1 % (37.2-46.3); HGB 13.6 g/dL (12.0-15.0); MCH 28.7 pg (27.0-32.0); MCHC 31.6 g/dL (32.0-37.0); MCV 90.9 FL (80.0-97.0); Mean Platelet Volume 10.4 FL (9.5-12.2); NRBC Per 100 WBC 0 X 10*3/uL (0.00-0.01); Platelet Count 327 X 10*3/uL (140-440); RBC 4.74 X 10*6/uL (4.10-5.20); RDW 12.7 % (11.5-14.5)
[2024-06-24 15:13] LABS: ALT 12 U/L (8-44); AST 27 U/L (13-35); Albumin 4.1 g/dL (3.8-4.9); Albumin/Globulin Ratio 1.52 Ratio (1.60-3.17); Alkaline Phosphatase 96 U/L (41-126); BUN/Creat Ratio 23.67 Ratio (12.00-20.00); Blood Urea Nitrogen 14.2 mg/dL (9.0-27.0); Calcium 9.5 mg/dL (8.7-10.3); Carbon Dioxide 28.6 mmol/L (21.6-31.8); Chloride 105 mmol/L (96-109); Chol/HDL Ratio 3.54 Ratio; Globulin 2.7 g/dL (1.6-3.3); Glucose 88 mg/dL (70-110); Potassium 4.5 mmol/L (3.5-5.5); Sodium 143 mmol/L (135-145); Total Bilirubin 0.2 mg/dL (0.3-1.2); Total Protein 6.8 g/dL (6.2-8.2); VLDL Calculation 17.18 mg/dL (5.00-40.00)
== END | disposition home or self-care (01) ==
LOC: LABWHC1 09:08
PROVIDERS: ATTEND Family Medicine
DX: Z00.01 Encounter for general adult medical examination with abnormal findings (principal)
CPT/HCPCS: 36415; 80053; 80061; 85027

== ENCOUNTER → 2024-07-10 | Outpatient (CLI) | payer MEDICARE | END | disposition home or self-care (01) | LOC: LABWHC1 11:36 | PROVIDERS: ATTEND Psychiatry & Neurology Neurology | DX: I73.00 Raynaud's syndrome without gangrene (principal); G62.9 Polyneuropathy, unspecified; Z79.899 Other long term (current) drug therapy | CPT/HCPCS: 36415; 82607 ==

== ENCOUNTER → 2024-10-08 | Outpatient (CLI) | payer MEDICARE ==
[2024-10-08 16:02] LABS: HCT 41.6 % (37.2-46.3); HGB 13.6 g/dL (12.0-15.0); MCH 29.3 pg (27.0-32.0); MCHC 32.7 g/dL (32.0-37.0); MCV 89.7 FL (80.0-97.0); NRBC Per 100 WBC 0 X 10*3/uL (0.00-0.01); Platelet Count 291 X 10*3/uL (140-440); RBC 4.64 X 10*6/uL (4.10-5.20); RDW 13.2 % (11.5-14.5); WBC 5.94 X 10*3/uL (4.50-10.00)
[2024-10-08 17:15] LABS: Streptolysin O Ab(ASO) 72 IntlUnit/L (0-200)
[2024-10-08 17:28] LABS: Rheumatoid Factor, Qnt <15 IU/mL (0-15)
[2024-10-09 10:21] LABS: HLA B27 NEGATIVE
[2024-10-09 12:58] LABS: Lyme IgG/IgM .058
== END | disposition home or self-care (01) ==
LOC: LABWHC1 11:06
PROVIDERS: ATTEND Podiatrist
DX: M79.671 Pain in right foot (principal); M79.672 Pain in left foot
CPT/HCPCS: 36415; 84443; 85027; 85652; 86038; 86060; 86140; 86431; 86618; 86812